=== PATIENT | female | born 1945 | race Caucasian/White ===

== ENCOUNTER → 2020-01-07 16:02 | Outpatient (CLI) | payer MEDICARE, SELFPAY ==
[2020-01-07 17:00] LABS: BUN Creatinine Ratio 14.3 (6-22); Blood Urea Nitrogen 12 mg/dL (7-17); Calcium 9.2 mg/dL (8.4-10.2); Carbon Dioxide 32 mmol/L (22-32); Chloride 104 mmol/L (98-107); Estimated Glomerular Filt Rate > 60.0 mL/min (>60); Glucose 109 mg/dL (80-110); HEMOLYSIS < 15 (0-50); Potassium 3.8 mmol/L (3.4-5.1); Sodium 141 mmol/L (137-145)
[2020-01-07 17:30] LABS: Thyroid Stimulating Hormone 4.95 uIU/mL (0.47-4.68)
== END ==
PROVIDERS: PCP Nurse Practitioner Family; Referring Provider Nurse Practitioner Family; Visit Provider Nurse Practitioner Family
DX: E03.9 Hypothyroidism, unspecified (principal)
CPT/HCPCS: 36415; 80048; 84443

== ENCOUNTER 2020-02-06 11:20 | Emergency (ER) | payer MEDICARE, SELFPAY ==
[2020-02-06 11:25] VITALS: BP 156/70; PULSE 60; RESP 15; TEMP 36.7; O2SAT 97; BMI 26.8
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
--- NOTE | 2020-02-06 12:02 | DI.RAD.S_ITS ---
PROCEDURE: XR CHEST 1V INDICATIONS: chest pain TECHNIQUE: One view of the chest was acquired. COMPARISON: None. FINDINGS: Surgical changes and devices: None. Lungs and pleura: Lungs are clear. No pleural effusions or pneumothorax. Mediastinum: Mediastinal contours appear normal. Heart size is normal. Bones and chest wall: No suspicious bony lesions. Overlying soft tissues appear unremarkable. IMPRESSION: No acute cardiopulmonary process demonstrated radiographically. Dictated by: Rajendra Casillas M.D. on 02/06/2020 at 12:34 Approved by: Rajendra Casillas M.D. on 02/06/2020 at 12:35
[2020-02-06 12:06] LABS: Add Manual Diff / Slide Review NO; Basophils Absolute Auto 0 /uL (0-100); Basophils Percent Auto 0.6 % (0-2); Eosinophils Absolute Auto 200 /uL (0-450); Hematocrit 38.8 % (36-46); Hemoglobin 12.9 g/dL (12.0-16.0); Lymphocytes Absolute Auto 2200 /uL (1100-4500); Lymphocytes Percent Auto 28.7 % (25-40); Mean Corpuscular HGB Conc 33.2 % (30-36); Mean Corpuscular Hemoglobin 31.3 PG (26-34); Mean Corpuscular Volume 94.4 fL (80-100); Monocytes Absolute Auto 600 /uL (0-900); Monocytes Percent Auto 7.2 % (3-14); Neutrophils Absolute Auto 4800 /uL (1500-7000); Neutrophils Percent Auto 61.5 % (50-75); Platelet Count 257 X10^3/uL (150-400); Red Blood Cell Count 4.11 X10^6/uL (4.0-5.2); Red Cell Distribution Width 13.1 % (11.6-14.8); White Blood Cell Count 7.8 X10^3/uL (4.5-11.0)
--- NOTE | 2020-02-06 12:06 | PC.NURSE ---
Pt states she went to her appt with Kayleigh Hancock today for CP/panic attacks. Was sent here for CP substernal into stomach through to her back and radiating down L arm. states she is under and immense amount of stress and has panic attacks often where she cant breathe. AAOx3 clear lungs, NSR 60's 146/63, IV placed and labs sent. Dr Malone at bedside.
[2020-02-06 12:12] LABS: Alanine Aminotransferase 22 IU/L (<35); Albumin 4.3 g/dL (3.5-5.0); Albumin Globulin Ratio 1.4 (1.0-2.8); Alkaline Phosphatase 61 U/L (38-126); Aspartate Aminotransferase 21 IU/L (14-36); BUN Creatinine Ratio 18.5 (6-22); Bilirubin Total 0.5 mg/dL (0.2-1.3); Blood Urea Nitrogen 15 mg/dL (7-17); Calcium 9.2 mg/dL (8.4-10.2); Carbon Dioxide 28 mmol/L (22-32); Chloride 107 mmol/L (98-107); Creatine Kinase 62 U/L (30-135); Estimated Glomerular Filt Rate > 60.0 mL/min (>60); Globulin 3.1 g/dL (1.7-4.1); Glucose 95 mg/dL (80-110); HEMOLYSIS < 15 (0-50); Lipase 254 U/L (23-300); Sodium 141 mmol/L (137-145); Total Protein 7.4 g/dL (6.3-8.2)
[2020-02-06 12:23] LABS: NT-proBNP (BNP-Adult 18+) 208 pg/mL (<125); Troponin I < 0.012 ng/mL (0.01-0.034)
[2020-02-06 13:09] VITALS: PULSE 59; RESP 13; O2SAT 97
[2020-02-06 13:14] VITALS: BP 129/62; PULSE 61; RESP 19; O2SAT 99
== END 2020-02-06 13:26 | disposition home or self-care (01) ==
PROVIDERS: Emergency Provider Emergency Medicine; PCP Nurse Practitioner Family
DX: F41.9 Anxiety disorder, unspecified (principal); R07.89 Other chest pain
CPT/HCPCS: 36415; 71045; 80053; 81003; 82550; 83690; 83880; 84484; 85025; 93005; 99284

== ENCOUNTER → 2020-02-17 13:29 | Outpatient (CLI) | payer MEDICARE, SELFPAY ==
[2020-02-17 16:31] LABS: Thyroid Stimulating Hormone 1.63 uIU/mL (0.47-4.68)
== END ==
PROVIDERS: PCP Nurse Practitioner Family; Referring Provider Nurse Practitioner Family; Visit Provider Nurse Practitioner Family
DX: E03.9 Hypothyroidism, unspecified (principal)
CPT/HCPCS: 36415; 84443

== ENCOUNTER → 2020-07-12 14:56 | Outpatient (CLI) | payer MEDICARE, SELFPAY ==
[2020-07-12 15:51] LABS: Alanine Aminotransferase 22 IU/L (<35); Albumin 4.5 g/dL (3.5-5.0); Albumin Globulin Ratio 1.6 (1.0-2.8); Alkaline Phosphatase 59 U/L (38-126); Aspartate Aminotransferase 28 IU/L (14-36); BUN Creatinine Ratio 17.7 (6-22); Bilirubin Total 0.5 mg/dL (0.2-1.3); Blood Urea Nitrogen 14 mg/dL (7-17); Calcium 9.8 mg/dL (8.4-10.2); Carbon Dioxide 28 mmol/L (22-32); Chloride 102 mmol/L (98-107); Estimated Glomerular Filt Rate > 60.0 mL/min (>60); Globulin 2.9 g/dL (1.7-4.1); Glucose 88 mg/dL (80-110); HEMOLYSIS < 15 (0-50); Potassium 4.3 mmol/L (3.4-5.1); Sodium 137 mmol/L (137-145); Total Protein 7.4 g/dL (6.3-8.2)
[2020-07-12 16:27] LABS: Free T4, Direct Thyroxine 1.02 ng/dL (0.78-2.19)
== END ==
PROVIDERS: PCP Family Medicine; Referring Provider Family Medicine; Visit Provider Family Medicine
DX: E03.9 Hypothyroidism, unspecified (principal)
CPT/HCPCS: 36415; 80053; 84439; 84443

== ENCOUNTER → 2020-10-22 07:40 | Outpatient (CLI) | payer MEDICARE, SELFPAY ==
--- NOTE | 2020-10-22 07:42 | DI.ECHO.S_ITS ---
[facility] +---------+ : : [address] [place] : : : : [id number] : : : : Phone: [phone] Echocardiogram Report + + :Name: DIAZ VERDUGO Study Date: 10/22/2020 Height: 65 in : :[facility] ReadingLocation: Weight: 140 lb : : Gender: Female BSA: 1.7 m2 : :: 1945 Age: 75 yrs BP: 141/81 mmHg: :Reason For Study: Aortic valve regurgitation : :Ordering Physician: : :MARIA ESTHER CAVANAUGH Performed By: Mauricio Ramos : :Referring: MARIA ESTHER CAVANAUGH : + + Interpretation Summary Normal sinus rhythm. Normal LV size and wall thickness; normal wall motion and LV systolic function. EF is 60-65%. Normal chamber sizes. Mild aortic regurgitation. Otherwise no significant valvular abnormalities. No prior study available for comparison. Procedure: A two-dimensional transthoracic echocardiogram with color flow and Doppler was performed. The study quality was technically adequate. There is no prior echocardiogram noted for this patient. The patient was in sinus rhythm with heart rates between 61-65 bpm during the exam. Left Ventricle: The left ventricle is normal in size and wall thickness. Left ventricular systolic function is normal. The ejection fraction is estimated to be 60-65%. There are no focal wall motion abnormalities. Diastolic parameters suggest a pseudonormalization pattern, consistent with probable elevated filling pressures. Right Ventricle: The right ventricle is normal in size and function. Atria: Both atria are normal in size. There is no Doppler evidence for an interatrial shunt. Mitral Valve: The mitral valve is normal in structure and function. There is mild mitral regurgitation. Aortic Valve: The aortic valve is normal in structure and function. There is mild aortic regurgitation. Tricuspid Valve: The tricuspid valve is normal in structure and function. There is moderate tricuspid regurgitation. The right ventricular systolic pressure is estimated to be at least 25 mmHg based on an estimated right atrial pressure of 3 mm Hg. Pulmonic Valve: The pulmonic valve is not well seen, but is grossly normal. There is mild pulmonic regurgitation. Great Vessels: The aortic root is normal size. The dimensions of the ascending aorta are normal. The IVC is of normal diameter and collapses greater than 50% with a sniff. This suggests a low right atrial pressure of 3 mm Hg. Pericardium/ Pleura There is no pericardial effusion. There is no pleural effusion. MMode/2D Measurements & Calculations LVIDd: 4.0 cm LVOT diam: 1.8 cm LVIDs: 2.6 cm Ao root diam: 2.6 cm FS: 34.8 % asc Aorta Diam: 2.7 cm IVSd: 0.61 cm LVPWd: 0.72 cm LV bowers. diameter/BSA (cm/m^2): 2.4 LV sys. diameter/BSA (cm/m^2): 1.5 LA A2 area: 17.8 cm2 RA long axis: 5.3 cm LA A4 area: 14.7 cm2 RA area: 17.5 cm2 LA length (vol): 5.1 cm RA vol: 48.8 ml LA vol: 43.4 ml RA : 28.7 ml/m2 LA vol index: 25.5 ml/m2 TAPSE: 2.6 cm Doppler Measurements & Calculations Ao V2 max: 183.6 cm/sec LVOT Max Zeb: 143.2 cm/sec Ao V2 mean: 133.0 cm/sec LV V1 max P.2 mmHg Ao max P.5 mmHg LV V1 VTI: 35.6 cm Ao mean P.8 mmHg CHOLO(I,D): 2.0 cm2 Ao V2 VTI: 45.3 cm CHOLO(V,D): 2.0 cm2 sev ratio: 0.79 CHOLO indexed to BSA (cm^2/m^2): 1.2 AI P1/2t: 524.5 msec AI dec slope: 276.5 cm/sec2 MV E max zeb: 93.7 cm/sec TR max zeb: 234.3 cm/sec MV A max zeb: 103.8 cm/sec TR max P.0 mmHg MV E/A: 0.90 PA pr(Accel): 5.4 mmHg Med Peak E' Zeb: 6.1 cm/sec E/E' med: 15.3 Lat Peak E' Zeb: 7.1 cm/sec E/E' lat: 13.1 E/e' average: 14.2 MV dec time: 0.30 sec SV(LVOT): 90.1 ml Electronically signed by: Sarah Lux M.D. on Reading Physician:10/23/2020 03:19 AM
== END ==
PROVIDERS: PCP Family Medicine; Referring Provider Family Medicine; Visit Provider Family Medicine
DX: I08.3 Combined rheumatic disorders of mitral, aortic and tricuspid valves (principal)
CPT/HCPCS: 93306

== ENCOUNTER → 2020-10-27 14:18 | Outpatient (CLI) | payer MEDICARE, SELFPAY ==
--- NOTE | 2020-10-27 14:20 | DI.MG.S_ITS ---
BILATERAL DIGITAL SCREENING MAMMOGRAM 3D/2D WITH CAD: 10/27/2020 CLINICAL: Routine screening. Family history of breast cancer. Comparison is made to exams dated: 01/16/2019 mammogram, 10/11/2017 mammogram, and 08/23/2016 mammogram - outside location. There are scattered fibroglandular elements in both breasts. Current study was also evaluated with a Computer Aided Detection (CAD) system. No significant masses, calcifications, or other findings are seen in either breast. There has been no significant interval change. IMPRESSION: NEGATIVE There is no mammographic evidence of malignancy. A 1 year screening mammogram is recommended. This exam was interpreted at Station ID: [id number]. NOTE: For mammograms, a report in lay terms will be sent to the patient. Approximately 15% of breast malignancies will not be visualized mammographically. In the management of a palpable breast mass, a negative mammogram must not discourage biopsy of a clinically suspicious lesion. Electronically Signed By: Kain lugo/annette:10/27/2020 17:38:33 letter sent: Normal Exam ACR BI-RADS Category 1: Negative [id number]
== END ==
PROVIDERS: PCP Family Medicine; Referring Provider Family Medicine; Visit Provider Family Medicine
DX: Z12.31 Encounter for screening mammogram for malignant neoplasm of breast (principal); Z80.3 Family history of malignant neoplasm of breast
CPT/HCPCS: 77063; 77067

== ENCOUNTER → 2021-09-13 07:54 | Outpatient (CLI) | payer MEDICARE, SELFPAY ==
[2021-09-13 08:41] LABS: Add Manual Diff / Slide Review NO; Basophils Absolute Auto 0 /uL (0-100); Basophils Percent Auto 0.7 % (0-2); Eosinophils Absolute Auto 500 /uL (0-450); Eosinophils Percent Auto 10.2 % (2-4); Hemoglobin 12.6 g/dL (12.0-16.0); Lymphocytes Absolute Auto 1700 /uL (1100-4500); Lymphocytes Percent Auto 30.6 % (25-40); Mean Corpuscular HGB Conc 33.2 % (30-36); Mean Corpuscular Hemoglobin 31.4 PG (26-34); Mean Corpuscular Volume 94.6 fL (80-100); Monocytes Absolute Auto 500 /uL (0-900); Monocytes Percent Auto 8.8 % (3-14); Neutrophils Absolute Auto 2700 /uL (1500-7000); Neutrophils Percent Auto 49.7 % (50-75); Platelet Count 262 X10^3/uL (150-400); Red Blood Cell Count 4.02 X10^6/uL (4.0-5.2); Red Cell Distribution Width 12.5 % (11.6-14.8); White Blood Cell Count 5.4 X10^3/uL (4.5-11.0)
[2021-09-13 09:17] LABS: Alanine Aminotransferase 16 IU/L (<35); Albumin 4.1 g/dL (3.5-5.0); Albumin Globulin Ratio 1.4 (1.0-2.8); Alkaline Phosphatase 53 U/L (38-126); Aspartate Aminotransferase 24 IU/L (14-36); BUN Creatinine Ratio 20.2 (6-22); Bilirubin Total 0.4 mg/dL (0.2-1.3); Blood Urea Nitrogen 17 mg/dL (7-17); Calcium 8.9 mg/dL (8.4-10.2); Carbon Dioxide 31 mmol/L (22-32); Chloride 105 mmol/L (98-107); Cholesterol 243 mg/dL (140-199); Estimated Glomerular Filt Rate > 60 mL/min (>60); Glucose 105 mg/dL (80-110); HDL Cholesterol 55 mg/dL (40-60); HEMOLYSIS < 15 (0-50); LDL Cholesterol Calculated 155 mg/dL (<100); Potassium 4.3 mmol/L (3.4-5.1); Sodium 139 mmol/L (137-145); Total Protein 7.1 g/dL (6.3-8.2); Triglycerides 167 mg/dL (35-150)
[2021-09-13 09:31] LABS: Thyroid Stimulating Hormone 3.06 uIU/mL (0.47-4.68)
== END ==
PROVIDERS: PCP Family Medicine; Referring Provider Family Medicine; Visit Provider Family Medicine
DX: E03.9 Hypothyroidism, unspecified (principal); F41.9 Anxiety disorder, unspecified; I10 Essential (primary) hypertension
CPT/HCPCS: 36415; 80053; 80061; 84439; 84443; 85025

== ENCOUNTER → 2021-11-02 13:08 | Outpatient (CLI) | payer MEDICARE, SELFPAY ==
--- NOTE | 2021-11-02 13:09 | DI.MG.S_ITS ---
BILATERAL DIGITAL SCREENING MAMMOGRAM 3D/2D WITH CAD: 11/02/2021 CLINICAL: Routine screening. Family history of breast cancer. Comparison is made to exams dated: 10/27/2020 mammogram - [facility], 01/16/2019 mammogram, and 10/11/2017 mammogram - outside location. There are scattered fibroglandular elements in both breasts. Current study was also evaluated with a Computer Aided Detection (CAD) system. No significant masses, calcifications, or other findings are seen in either breast. There has been no significant interval change. IMPRESSION: NEGATIVE There is no mammographic evidence of malignancy. A 1 year screening mammogram is recommended. Based on the Tyrer Cuzick model (a risk assessment model) the patient's lifetime risk is 2.9% and her 10 year risk is 2.9%. According to the ACR, ACS, and NCCN guidelines, an annual breast MRI exam along with mammogram is recommended if the patient's lifetime risk is 20% or greater. This exam was interpreted at Station ID: [id number]. NOTE: For mammograms, a report in lay terms will be sent to the patient. Approximately 15% of breast malignancies will not be visualized mammographically. In the management of a palpable breast mass, a negative mammogram must not discourage biopsy of a clinically suspicious lesion. Electronically Signed By: Rosalino farley/annette:11/02/2021 13:36:00 letter sent: Normal Exam ACR BI-RADS Category 1: Negative [id number]
== END ==
PROVIDERS: PCP Family Medicine; Referring Provider Family Medicine; Visit Provider Family Medicine
DX: Z12.31 Encounter for screening mammogram for malignant neoplasm of breast (principal); Z80.3 Family history of malignant neoplasm of breast
CPT/HCPCS: 77063; 77067

== ENCOUNTER → 2022-03-09 15:04 | Outpatient (CLI) | payer MEDICARE, SELFPAY ==
--- NOTE | 2022-03-09 15:06 | DI.RAD.S_ITS ---
PROCEDURE: XR KNEE RT 3V INDICATIONS: Evaluate and Treat TECHNIQUE: 3 views of the knee were acquired. COMPARISON: None. FINDINGS: Bones: No fractures or dislocations. No suspicious bony lesions. Mild tricompartmental periarticular osteophyte formation. Soft tissues: Small joint effusion. No suspicious soft tissue calcifications. IMPRESSION: Mild tricompartmental knee joint degeneration and small joint effusion. Dictated by: Joe Solares [facility] Interpreted: Ruperto Allen MD on 03/09/2022 at 16:18 Transcribed by: CARLOS on 03/09/2022 at 16:19 Approved by: Ruperto Allen M.D. on 03/09/2022 at 17:10
== END ==
PROVIDERS: PCP Family Medicine; Referring Provider Family Medicine; Visit Provider Family Medicine
DX: M17.11 Unilateral primary osteoarthritis, right knee (principal); M25.461 Effusion, right knee; M25.561 Pain in right knee
CPT/HCPCS: 73562

== ENCOUNTER → 2022-03-10 08:03 | Outpatient (CLI) | payer MEDICARE, SELFPAY ==
[2022-03-10 10:12] LABS: Alanine Aminotransferase 20 IU/L (<35); Albumin 3.9 g/dL (3.5-5.0); Albumin Globulin Ratio 1.3 (1.0-2.8); Alkaline Phosphatase 57 U/L (38-126); Aspartate Aminotransferase 22 IU/L (14-36); BUN Creatinine Ratio 27.2 (6-22); Bilirubin Total 0.2 mg/dL (0.2-1.3); Blood Urea Nitrogen 22 mg/dL (7-17); Carbon Dioxide 27 mmol/L (22-32); Chloride 104 mmol/L (98-107); Cholesterol 188 mg/dL (140-199); Estimated Glomerular Filt Rate > 60 mL/min (>60); Globulin 2.9 g/dL (1.7-4.1); Glucose 101 mg/dL (80-110); HDL Cholesterol 46 mg/dL (40-60); HEMOLYSIS < 15 (0-50); LDL Cholesterol Calculated 82 mg/dL (<100); Potassium 4.6 mmol/L (3.4-5.1); Sodium 139 mmol/L (137-145); Total Protein 6.8 g/dL (6.3-8.2); Triglycerides 302 mg/dL (35-150)
[2022-03-10 10:28] LABS: Free T4, Direct Thyroxine 1.07 ng/dL (0.78-2.19)
[2022-03-10 10:42] LABS: Thyroid Stimulating Hormone 3.02 uIU/mL (0.47-4.68)
== END ==
PROVIDERS: PCP Family Medicine; Referring Provider Family Medicine; Visit Provider Family Medicine
DX: E03.9 Hypothyroidism, unspecified (principal); E78.2 Mixed hyperlipidemia; F41.9 Anxiety disorder, unspecified
CPT/HCPCS: 36415; 80053; 80061; 84439; 84443

== ENCOUNTER → 2022-07-01 08:18 | Outpatient (CLI) | payer MEDICARE, SELFPAY ==
[2022-07-01 08:58] LABS: Add Manual Diff / Slide Review NO; Basophils Absolute Auto 0 /uL (0-100); Basophils Percent Auto 0.8 % (0-2); Eosinophils Absolute Auto 300 /uL (0-450); Eosinophils Percent Auto 4.2 % (2-4); Hematocrit 38.6 % (36-46); Hemoglobin 12.9 g/dL (12.0-16.0); Lymphocytes Absolute Auto 1900 /uL (1100-4500); Lymphocytes Percent Auto 30.2 % (25-40); Mean Corpuscular HGB Conc 33.4 % (30-36); Mean Corpuscular Hemoglobin 31.5 PG (26-34); Mean Corpuscular Volume 94.2 fL (80-100); Monocytes Absolute Auto 500 /uL (0-900); Monocytes Percent Auto 7.2 % (3-14); Neutrophils Absolute Auto 3600 /uL (1500-7000); Neutrophils Percent Auto 57.6 % (50-75); Platelet Count 260 X10^3/uL (150-400); Red Cell Distribution Width 13.1 % (11.6-14.8); White Blood Cell Count 6.3 X10^3/uL (4.5-11.0)
[2022-07-01 09:40] LABS: Cholesterol 236 mg/dL (140-199); HDL Cholesterol 58 mg/dL (40-60); LDL Cholesterol Calculated 140 mg/dL (<100); Triglycerides 188 mg/dL (35-150)
[2022-07-01 12:21] LABS: TSH w/ Reflex to FT4 2.11 uIU/mL (0.47-4.68)
== END ==
PROVIDERS: PCP Family Medicine; Referring Provider Family Medicine; Visit Provider Family Medicine
DX: E03.9 Hypothyroidism, unspecified (principal); E78.2 Mixed hyperlipidemia; K57.92 Diverticulitis of intestine, part unspecified, without perforation or abscess without bleeding
CPT/HCPCS: 36415; 80061; 84443; 85025

== ENCOUNTER → 2022-07-07 15:09 | Outpatient (CLI) | payer MEDICARE, SELFPAY ==
--- NOTE | 2022-07-07 15:11 | DI.RAD.S_ITS ---
PROCEDURE: XR HIP W PEL IF DONE LT 2V INDICATIONS: L hip pain TECHNIQUE: AP pelvis with lateral view(s) of the left hip(s). COMPARISON: None. FINDINGS: Bones: No acute fractures or dislocations. Pelvic ring appears intact. No suspicious bony lesions. Moderate-severe left hip degenerative changes with joint space narrowing, spurring, subchondral sclerosis and probable cystic change. Mild right hip degenerative changes also present. Soft tissues: The visualized bowel gas pattern is normal. No suspicious soft tissue calcifications. IMPRESSION: No acute fracture or dislocation identified. Moderate-severe left hip degenerative changes present. If symptoms persist, follow-up radiographs and/or CT or MRI may be helpful for further evaluation. Dictated by: Dimitris Huddleston M.D. on 07/07/2022 at 16:16 Approved by: Dimitris Huddleston M.D. on 07/07/2022 at 16:18
== END ==
PROVIDERS: PCP Family Medicine; Referring Provider Family Medicine; Visit Provider Family Medicine
DX: M25.552 Pain in left hip (principal)
CPT/HCPCS: 73502

== ENCOUNTER 2022-07-21 06:49 | Day surgery (SDC) | payer MEDICARE, SELFPAY ==
[2022-07-21 07:30] VITALS: BMI 26.6
[2022-07-21 07:42] VITALS: BP 147/73; PULSE 65; RESP 16; TEMP 36.2
--- NOTE | 2022-07-21 07:43 | PM.HP.1 ---
History of Present Illness History of Present Illness Date Patient Seen: 07/21/22 Time Patient Seen: 07:35 Chief complaint: Colonoscopy Narrative: Ms. Gonzalez presents today for a screening colonoscopy. She is having severe pain in her right hip but that has been going on for some time she is not sure the etiology at this time. The prep has gone well. Her last colonoscopy was maybe about 10 years ago she can not recall. She does not recall any history of polyps although she was told she does have diverticula. She has no family history of colon cancer and no bleeding or bowel symptoms that are concerning. [facility] Medical History Acquired hypothyroidism (~1963) Allergies (~1963) Anxiety (~2006) Aortic valve regurgitation Bilateral hearing loss Bilateral tinnitus Cataracts, bilateral (~1993) Chicken pox (~1951) Depression Diverticular disease (~1994) Diverticulitis Herpes (~1989) Hyperlipidemia Hypertension Intermittent palpitations (2014) Large breasts Left hip pain Left shoulder pain Measles (~1952) Mitral valve regurgitation Mumps (~1950) Preventative health care Preventative health care Pulmonic valve regurgitation Right knee pain Seborrheic keratosis Tinnitus (~1989) Tricuspid valve regurgitation Varicose veins of bilateral lower extremities with other complications Well adult exam Surgical History Anesthesia History of cholecystectomy (~1976) History of tonsillectomy (~1951) Family History Father History of heart disease Mother History of heart disease Sister Dementia Grandmother Dementia Grandfather History of heart disease Grandmother Ulcer Social History household members: family Smoking Status: Never smoker Meds Home Medications and Allergies Home Medications Medication Instructions Recorded Confirmed Type Saccharomyces boulardii [Daily PO 07/07/22 07/07/22 History Probiotic (S. boulardii)] citalopram 20 mg tablet See Rx Instructions .Route 07/07/22 07/21/22 Rx .COMPLEX #90 tabs famciclovir 250 mg tablet 250 mg PO BID As needed use 07/07/22 07/21/22 Rx outbreaks #30 tabs levothyroxine 88 mcg tablet 88 mcg PO DAILY #90 tabs 07/07/22 07/21/22 Rx lorazepam 1 mg tablet 1 mg PO BID PRN anxiety #30 tabs 07/07/22 07/21/22 Rx multivitamin [Daily Multi-Vitamin] PO 07/07/22 07/07/22 History [id number]-capryl PO 07/07/22 07/07/22 History Allergies Allergy/AdvReac Type Severity Reaction Status Date / Time Sulfa (Sulfonamide Allergy Verified 07/21/22 07:24 Antibiotics) amitriptyline AdvReac Intermediate hearing Verified 07/21/22 07:24 loss Exam Const General: cooperative, healthy appearing and No comfortable Other: Hip pain Eyes General: appearance normal, both eyes and all related structures Resp Effort & Inspection: normal respiratory effort and able to speak in complete sentences GI Palpation: soft and No tender Assessment & Plan Assessment and plan (1) Colon cancer screening: Status: Acute (2) Diverticular disease: Status: Chronic Assessment & Plan narrative: I discussed the risks benefits and alternatives including but not limited to perforation of the colon and an incomplete exam she fully understands these risks and would like to proceed.
[2022-07-21] MEDS: LACTATED RINGERS 1,000 ML 42 ML IV (07:50)
[2022-07-21 08:39] VITALS: BP 113/68; PULSE 62; RESP 12; TEMP 36.2; O2SAT 97
[2022-07-21 08:43] VITALS: BP 99/70; PULSE 70; RESP 17; O2SAT 98
[2022-07-21 09:15] VITALS: BP 134/74; PULSE 61; RESP 12; TEMP 36.5; O2SAT 99
--- NOTE | 2022-07-21 10:08 | SUR.PHASEII ---
Patient reported dizziness which improved with rest and hydration. Delayed D/C due to waiting for ride.
--- NOTE | 2022-07-21 19:43 | P.OP.COLON_ITS ---
Operative Date/Time/Diagnoses Date of procedure: 07/21/22 Pre-op diagnosis: Colon cancer screening, average risk Post-op diagnosis: same Procedure & Clinicians Study performed: Colonoscopy Same procedure as scheduled: Yes Surgeon: Justina Andarde Procedure Notes Procedure in detail: Patient was taken to the endoscopy suite and placed in left lateral decubitus position. A time-out was performed. Conscious sedation was performed and monitored by anesthesiologist. Digital rectal exam was performed no masses or strictures were present. The colonoscope was introduced into the anal canal and advanced through to the cecum. The sigmoid colon was noted to be very tortuous and have multiple large diverticula. Several photographs were obtained. In addition the prep was relatively poor and a [place] bowel prep score of 1. The cecum was reached and a photograph was obtained and the scope was then withdrawn for 22 minutes. Throughout the withdrawal irrigation and suction was used to clean the colonic mucosa as much as possible. I think that the exam was adequate though limited by the prep. No polyps were seen. Findings: divertiulosis Post-procedure Recommendations: Colonoscopy in 5 years Plan for aftercare: I think that a 5 year follow-up would be preferred due to the quality of the prep.
== END 2022-07-21 09:44 | disposition home or self-care (01) ==
PROVIDERS: PCP Family Medicine; Referring Provider Surgery; Visit Provider Surgery
PROC: 0DJD8ZZ Inspection of Lower Intestinal Tract, Via Natural or Artificial Opening Endoscopic (ICD-10-PCS; CPT 45378; principal; 2022-07-21 07:45)
DX: Z12.11 Encounter for screening for malignant neoplasm of colon (principal); K57.30 Diverticulosis of large intestine without perforation or abscess without bleeding
CPT/HCPCS: G0121; J2704

== ENCOUNTER 2022-12-12 15:54 | Emergency (ER) | payer MEDICARE, SELFPAY ==
[2022-12-12 16:12] VITALS: BP 146/69; PULSE 67; RESP 16; TEMP 36.2; O2SAT 98; BMI 26.6
--- NOTE | 2022-12-12 16:21 | DI.RAD.S_ITS ---
PROCEDURE: XR FOOT RT MIN 3V INDICATIONS: fall hiking on sunday TECHNIQUE: 3 views of the foot were acquired. COMPARISON: None. FINDINGS: Bones: No fractures or dislocations. No suspicious bony lesions. Soft tissues: No tibiotalar joint effusion. Achilles tendon appears normal. IMPRESSION: No visualized acute fracture or dislocation. However, if clinical concern and/or pain persist, short interval imaging followup in 7-10 days is recommended, as occult injury cannot be definitively excluded. Dictated by: Mary Ralph M.D. on 12/12/2022 at 17:01 Approved by: Mary Ralph M.D. on 12/12/2022 at 17:01
--- NOTE | 2022-12-12 16:21 | DI.RAD.S_ITS ---
PROCEDURE: XR ANKLE LT MIN 3V INDICATIONS: fall hiking on sunday TECHNIQUE: 3 views of the ankle were acquired. COMPARISON: None. FINDINGS: Bones: No fractures or dislocations. Ankle mortise is normally aligned. No suspicious bony lesions. Soft tissues: No tibiotalar joint effusion. Achilles tendon appears normal. IMPRESSION: No visualized acute fracture or dislocation. However, if clinical concern and/or pain persist, short interval imaging followup in 7-10 days is recommended, as occult injury cannot be definitively excluded. Dictated by: Mary Ralph M.D. on 12/12/2022 at 17:02 Approved by: Mary Ralph M.D. on 12/12/2022 at 17:03
--- NOTE | 2022-12-12 16:21 | DI.RAD.S_ITS ---
PROCEDURE: XR HIP W PEL IF DONE LT 2V INDICATIONS: fall hiking on sunday TECHNIQUE: AP pelvis with lateral view(s) of the left hip(s). COMPARISON: [facility], , XR HIP W PEL IF DONE LT 2V, 07/07/2022, 15:17. FINDINGS: Bones: No fractures or dislocations. Pelvic ring appears intact. No suspicious bony lesions. Moderate to severe bilateral degenerative narrowing of the hips, left greater than right. Subchondral sclerosis and periarticular osteophytes are present most notable on the left. Overall appearances are stable. Soft tissues: The visualized bowel gas pattern is normal. No suspicious soft tissue calcifications. IMPRESSION: No visualized acute fracture or dislocation. However, if clinical concern and/or pain persist, short interval imaging followup in 7-10 days is recommended, as occult injury cannot be definitively excluded. Dictated by: Mary Ralph M.D. on 12/12/2022 at 17:02 Approved by: Mary Ralph M.D. on 12/12/2022 at 17:02
--- NOTE | 2022-12-12 19:20 | ED.FALL ---
HPI - Fall General Chief Complaint: Fall Stated Complaint: Fall t-3 Time Seen by Provider: 12/12/22 19:13 Source: patient Mode of arrival: Wheelchair Limitations: no limitations History of Present Illness HPI Narrative: Patient is a 77-year-old female is here for evaluation right foot pain, left ankle pain and left hip pain. Her symptoms occurred approximately 3 days ago when she fell while hiking. She has had chronic left hip pain and she thinks that the fall may have aggravated this. She still has been ambulatory but has to use a walking stick for support. She did not hit her head. No loss of consciousness. She states she is bruising around her foot and uses compression stockings to try to support her ankle and foot. Related Data Home Medications Medication Instructions Recorded Confirmed multivitamin [Daily Multi-Vitamin] PO 07/07/22 11/10/22 ashwagandha extract 1 cap PO DAILY 11/10/22 11/10/22 biotin 1,250 mcg-collagen 50 1 tab PO DAILY 11/10/22 11/10/22 mg-vit C 67.5 mg-vit E-herbal chew tablet citalopram 20 mg tablet 20 mg PO DAILY 11/10/22 11/10/22 lorazepam 1 mg tablet 1 mg PO BEDTIME PRN anxiety 11/10/22 11/10/22 Previous Rx's Medication Instructions Recorded famciclovir 250 mg tablet 250 mg PO BID As needed use 07/07/22 outbreaks #30 tabs levothyroxine 88 mcg tablet 88 mcg PO DAILY #90 tabs 07/07/22 meloxicam 15 mg tablet 15 mg PO DAILY #30 tabs 09/20/22 Allergies Allergy/AdvReac Type Severity Reaction Status Date / Time Sulfa (Sulfonamide Allergy Verified 12/12/22 16:20 Antibiotics) amitriptyline AdvReac Intermediate hearing Verified 12/12/22 16:20 loss lovastatin AdvReac Intermediate aches Verified 12/12/22 16:20 pravastatin AdvReac Intermediate aches Verified 12/12/22 16:20 Statins AdvReac Mild pain Uncoded 12/12/22 16:20 Review of Systems Constitutional Constitutional: Reports system reviewed and no additional complaints, except as documented Musculoskeletal Musculoskeletal: Reports system reviewed and no additional complaints, except as documented Integumentary/Breasts Skin/Breast: Reports system reviewed and no additional complaints, except as documented Neurologic Neurologic: Reports system reviewed and no additional complaints, except as documented Hematologic/Lymphatic On Anticoagulants: No Patient History Medical History Acquired hypothyroidism (~1963) Allergies (~1963) Aortic valve regurgitation Bilateral hearing loss Bilateral tinnitus Cataracts, bilateral (~1993) Chicken pox (~1951) Depression, major, recurrent Diverticular disease (~1994) Diverticulitis Generalized anxiety disorder Herpesviral infection Hypertension Intermittent palpitations (2014) Large breasts Measles (~1952) Mitral valve regurgitation Mixed hyperlipidemia Mumps (~1950) Primary osteoarthritis involving multiple joints Seborrheic keratosis Statin intolerance Tinnitus (~1989) Varicose veins of bilateral lower extremities with other complications Surgical History Anesthesia History of cholecystectomy (~1976) History of tonsillectomy (~1951) Family History Father History of heart disease Mother History of heart disease Sister Dementia Grandmother Dementia Grandfather History of heart disease Grandmother Ulcer Social History details: Lives with daughter, 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 household members: family Smoking Status: Never smoker Smoking Status: Never smoker alcohol intake frequency: holidays/special occasions only Substance Use Type: does not use Exam Initial Vital Signs Initial Vital Signs: Vital Signs Temperature 97.1 F L 12/12/22 16:12 Pulse Rate 67 12/12/22 16:12 Respiratory Rate 16 12/12/22 16:12 Blood Pressure 146/69 H 12/12/22 16:12 Pulse Oximetry 98 12/12/22 16:12 Oxygen Delivery Method Room Air 12/12/22 16:12 Const General: cooperative, comfortable and No ill appearing HENMT Head: normal to inspection and normocephalic Neuro Sensory Exam: no sensory deficits noted Extrem Other: Mild swelling to the right ankle. She is tenderness over the dorsum of the foot on the right. No Lisfranc joint tenderness. No ankle tenderness. She does have tenderness around her left ankle. Tenderness to the lateral left hip. Course Orders Ordered: ED Orders 12/12/22 16:21 XR ankle LT min 3V Stat XR foot RT min 3V Stat XR hip w pel if done LT 2V Stat Vital Signs Vital signs: Vital Signs - 8 hr 12/12/22 19:31 Pulse Rate 59 L Respiratory Rate 17 Blood Pressure 171/77 H Pulse Oximetry 100 Oxygen Delivery Method Room Air MDM - Fall Imaging Data Extremity x-ray #1: Radiologist's Impression: PROCEDURE:? XR ANKLE LT MIN 3V ? INDICATIONS:? fall hiking on sunday ? TECHNIQUE:? 3 views of the ankle were acquired.? ? COMPARISON:? None. ? FINDINGS:? ? Bones:? No fractures or dislocations.? Ankle mortise is normally aligned.? No suspicious bony lesions.? ? Soft tissues:? No tibiotalar joint effusion.? Achilles tendon appears normal.? ? ? IMPRESSION:? No visualized acute fracture or dislocation. However, if clinical concern and/or pain persist, short interval imaging followup in 7-10 days is recommended, as occult injury cannot be definitively excluded. Extremity x-ray #2: Radiologist's Impression: PROCEDURE:? XR FOOT RT MIN 3V ? INDICATIONS:? fall hiking on sunday ? TECHNIQUE:? 3 views of the foot were acquired.? ? COMPARISON:? None. ? FINDINGS:? ? Bones:? No fractures or dislocations.? No suspicious bony lesions.? ? Soft tissues:? No tibiotalar joint effusion.? Achilles tendon appears normal.? ? ? IMPRESSION:? No visualized acute fracture or dislocation. However, if clinical concern and/or pain persist, short interval imaging followup in 7-10 days is recommended, as occult injury cannot be definitively excluded. Extremity x-ray #3: Radiologist's Impression: PROCEDURE:? XR HIP W PEL IF DONE LT 2V ? INDICATIONS:? fall hiking on sunday ? TECHNIQUE:? AP pelvis with lateral view(s) of the left hip(s).? ? COMPARISON:? [facility], [place], XR HIP W PEL IF DONE LT 2V, 07/07/2022, 15:17. ? FINDINGS:? ? Bones:? No fractures or dislocations.? Pelvic ring appears intact.? No suspicious bony lesions.? Moderate to severe bilateral degenerative narrowing of the hips, left greater than right.? Subchondral sclerosis and periarticular osteophytes are present most notable on the left.? Overall appearances are stable. ? Soft tissues:? The visualized bowel gas pattern is normal.? No suspicious soft tissue calcifications.? ? ? IMPRESSION:? No visualized acute fracture or dislocation. However, if clinical concern and/or pain persist, short interval imaging followup in 7-10 days is recommended, as occult injury cannot be definitively excluded. ? MDM Narrative Medical decision making narrative: X-ray show no acute pathology. This was a mechanical fall I did discuss this with the patient. She is able to bear weight on her lower extremities. There is no indication for further radiologic studies. We did discuss conservative measures to include heat and ice and compression. Discharge patient home with return precautions. She expressed understanding and agreement Discharge Plan Departure Patient Disposition: Home Clinical Impression: Hip pain, left, Sprain of foot, right Instructions: How To Perform RICE (Rest, Ice, Compress, Elevate) Activity Restrictions/Additional Instructions: Your x-rays today did not show any signs of fractures or dislocations. You can walk as tolerated. I recommend Tylenol/ibuprofen for any discomfort. Return to the emergency department for worsening symptoms. Prescriptions: No Action citalopram 20 mg tablet 20 mg PO DAILY lorazepam 1 mg tablet 1 mg PO BEDTIME PRN (Reason: anxiety) [id number] C-E-herbal 1,250 mcg-50 mg -67.5 mg-15 mg tablet,chewable 1 tab PO DAILY ashwagandha extract 1 cap PO DAILY multivitamin [Daily Multi-Vitamin] PO famciclovir 250 mg tablet 250 mg PO BID Qty: 30 2RF levothyroxine 88 mcg tablet 88 mcg PO DAILY Qty: 90 3RF meloxicam 15 mg tablet 15 mg PO DAILY Qty: 30 1RF Referrals: Magnus Prince MD [Primary Care Provider] - Stand Alone Forms: Patient Portal/API
[2022-12-12 19:31] VITALS: BP 171/77; PULSE 59; RESP 17; O2SAT 100
== END 2022-12-12 19:32 | disposition home or self-care (01) ==
PROVIDERS: Emergency Provider Emergency Medicine; PCP Internal Medicine
DX: S93.601A Unspecified sprain of right foot, initial encounter (principal); M25.552 Pain in left hip; W18.30XA Fall on same level, unspecified, initial encounter
CPT/HCPCS: 73502; 73610; 73630; 99281; 99283

== ENCOUNTER → 2022-12-20 09:56 | Outpatient (CLI) | payer MEDICARE, SELFPAY ==
--- NOTE | 2022-12-20 09:57 | DI.MG.S_ITS ---
BILATERAL DIGITAL SCREENING MAMMOGRAM 3D/2D WITH CAD: 12/20/2022 CLINICAL: Routine screening. Family history of breast cancer. Comparison is made to exams dated: 11/02/2021 mammogram, 10/27/2020 mammogram - [facility], 01/16/2019 mammogram, and 10/11/2017 mammogram - outside location. There are scattered areas of fibroglandular density in both breasts (category b / 25%-50% glandular tissue). Current study was also evaluated with a Computer Aided Detection (CAD) system. No significant masses, calcifications, or other findings are seen in either breast. There has been no significant interval change. IMPRESSION: NEGATIVE There is no mammographic evidence of malignancy. A 1 year screening mammogram is recommended. Based on the Tyrer Cuzick model (a risk assessment model) the patient's lifetime risk is 2.7% and her 10 year risk is 0.0%. According to the ACR, ACS, and NCCN guidelines, an annual breast MRI exam along with mammogram is recommended if the patient's lifetime risk is 20% or greater. This exam was interpreted at Station ID: [id number]. NOTE: For mammograms, a report in lay terms will be sent to the patient. Approximately 15% of breast malignancies will not be visualized mammographically. In the management of a palpable breast mass, a negative mammogram must not discourage biopsy of a clinically suspicious lesion. Electronically Signed By: Ernesto roca/annette:12/20/2022 18:00:08 letter sent: Normal Exam ACR BI-RADS Category 1: Negative 3341F
--- NOTE | 2022-12-20 09:57 | DI.RAD.S_ITS ---
PROCEDURE: XR FOOT RT MIN 3V INDICATIONS: right foot pain TECHNIQUE: 3 views of the foot were acquired. COMPARISON: [facility], , XR FOOT RT MIN 3V, 12/12/2022, 16:40. FINDINGS: Bones: No fractures or dislocations. Left foot osteoarthritic changes are seen with joint space narrowing and subchondral sclerosis. Tiny plantar calcaneal enthesophyte is noted. No suspicious bony lesions. Soft tissues: No tibiotalar joint effusion. Achilles tendon appears normal. IMPRESSION: Fatg-op-scxsxagr left foot osteoarthritis. No fracture or dislocation. No signs of healing fractures. Dictated by: Ruperto Allen M.D. on 12/20/2022 at 10:32 Approved by: Ruperto Allen M.D. on 12/20/2022 at 10:34
== END ==
PROVIDERS: PCP Internal Medicine; Referring Provider Internal Medicine; Visit Provider Internal Medicine
DX: Z12.31 Encounter for screening mammogram for malignant neoplasm of breast (principal); Z80.3 Family history of malignant neoplasm of breast; M19.071 Primary osteoarthritis, right ankle and foot; M79.671 Pain in right foot
CPT/HCPCS: 73630; 77063; 77067

== ENCOUNTER → 2023-03-09 08:02 | Outpatient (CLI) | payer MEDICARE, SELFPAY ==
--- NOTE | 2023-03-09 08:03 | DI.ECHO.S_ITS ---
[facility]---------+ [facility] +---------+ : : [address] [place] : : : : [id number] : : : : Phone: [phone]+ Echocardiogram Report + + :Name: DIAZ VERDUGO Study Date: 03/09/2023 Height: 65 in : :[facility] ReadingLocation: Weight: 165 lb : : Gender: Female BSA: 1.8 m2 : :: 1945 Age: 77 yrs BP: 137/76 mmHg: :Reason For Study: Aotic Valve Insufficiency : :Ordering Physician: GIOVANA, : :NAE Performed By: Enma Simpson : :Referring: NAE AKHTAR : + + Interpretation Summary The ejection fraction is estimated to be 60-65%. The right ventricle is normal in size and function. The right ventricular systolic pressure is estimated to be at least 21 mmHg based on an estimated right atrial pressure of 3 mm Hg. There is mild aortic regurgitation. No significant change from prior study in 10/2020 Procedure: A two-dimensional transthoracic echocardiogram with color flow and Doppler was performed. The study quality was technically adequate. Comparison is made with the echocardiogram of 10/22/2020. The patient was in normal sinus rhythm during the exam. Left Ventricle: The left ventricle is normal in size. The ejection fraction is estimated to be 60-65%. Diastolic parameters suggest a relaxation abnormality of the left ventricle, consistent with probable normal filling pressures. Right Ventricle: The right ventricle is normal in size and function. Atria: The left atrial size is normal. Right atrial size is normal. There is no Doppler evidence for an interatrial shunt. Mitral Valve: The mitral valve is normal. There is mild mitral annular calcification. There is no mitral valve stenosis. There is trace mitral regurgitation. Aortic Valve: The aortic valve is trileaflet. The aortic valve opens well. There is no aortic valve stenosis. There is mild aortic regurgitation. Tricuspid Valve: The tricuspid valve is normal. There is no tricuspid stenosis. There is mild tricuspid regurgitation. The right ventricular systolic pressure is estimated to be at least 21 mmHg based on an estimated right atrial pressure of 3 mm Hg. Pulmonic Valve: The pulmonic valve leaflets are thin and pliable; valve motion is normal. There is no pulmonic valvular stenosis. There is trace pulmonic regurgitation. Great Vessels: The aortic root is normal size. The ascending aorta is normal in size. The pulmonary artery is normal size. The IVC is of normal diameter and collapses greater than 50% with a sniff. This suggests a low right atrial pressure of 3 mm Hg. Pericardium/ Pleura There is no pericardial effusion. There is no pleural effusion. MMode/2D Measurements & Calculations LVIDd: 4.0 cm LVOT diam: 1.6 cm LVIDs: 1.7 cm Ao root diam: 2.8 cm FS: 58.0 % asc Aorta Diam: 2.8 cm IVSd: 0.73 cm LVPWd: 0.74 cm LV bowers. diameter/BSA (cm/m^2): 2.2 LV sys. diameter/BSA (cm/m^2): 0.91 LA A2 area: 16.3 cm2 RA long axis: 5.6 cm LA A4 area: 9.7 cm2 RA area: 16.8 cm2 LA length (vol): 4.8 cm RA vol: 43.0 ml LA vol: 28.2 ml RA : 23.6 ml/m2 LA vol index: 15.5 ml/m2 TAPSE: 2.4 cm Doppler Measurements & Calculations Ao V2 max: 199.4 cm/sec LVOT Max Zeb: 121.1 cm/sec Ao V2 mean: 135.6 cm/sec LV V1 max P.9 mmHg Ao max P.9 mmHg LV V1 VTI: 28.0 cm Ao mean P.4 mmHg CHOLO(I,D): 1.3 cm2 Ao V2 VTI: 46.2 cm CHOLO(V,D): 1.3 cm2 sev ratio: 0.61 CHOLO indexed to BSA (cm^2/m^2): 0.69 MV E max zeb: 75.5 cm/sec TR max zeb: 214.6 cm/sec MV A max zeb: 99.5 cm/sec TR max P.4 mmHg MV E/A: 0.76 PA V2 max: 81.6 cm/sec Med Peak E' Zeb: 5.0 cm/sec PA V2 mean: 60.2 cm/sec E/E' med: 15.2 PA mean P.6 mmHg Lat Peak E' Zeb: 6.7 cm/sec PA pr(Accel): 22.5 mmHg E/E' lat: 11.3 E/e' average: 13.3 MV dec time: 0.29 sec [facility]): 57.9 ml Reading Physician:MARVIN
== END ==
PROVIDERS: PCP Internal Medicine; Referring Provider Internal Medicine; Visit Provider Internal Medicine
DX: I08.3 Combined rheumatic disorders of mitral, aortic and tricuspid valves (principal)
CPT/HCPCS: 93306

== ENCOUNTER → 2023-05-25 10:54 | Outpatient (CLI) | payer MEDICARE, SELFPAY ==
--- NOTE | 2023-05-25 11:04 | DI.RAD.S_ITS ---
Bone Density Report Name: DIAZ VERDUGO Age: 78 Sex: Female Ethnicity: White Date of : 1945 Indication: postmenopausal; screening for osteoporosis; prior fracture; Referring Provider: NILS AVILEZ Study: Bone densitometry was performed. Exam Date: May 25, 2023 Accession number: [id number] Bone Density: Region BMD T-score Z-score Classification AP Spine(L1, L2, L3) 0.935 -0.8 1.7 Normal Femoral Neck (Left) 0.689 -1.4 0.7 Osteopenia Total Hip (Left) 0.791 -1.2 0.7 Osteopenia Femoral Neck (Right) 0.660 -1.7 0.5 Osteopenia Total Hip (Right) 0.804 -1.1 0.8 Osteopenia Total Hip Mean 0.797 -1.2 0.8 Osteopenia World Health Organization criteria for BMD impression classify patients as: Normal (T-score at or above -1.0), Osteopenia (T-score between -1.0 and -2.5), or Osteoporosis (T-score at or below -2.5). 10-year Fracture Risk(1): Major Osteoporotic Fracture 19% Hip Fracture 4.0% Reported Risk Factors: [place] (), Neck BMD=0.660, BMI=26.6, previous fracture (1) FRAX(R) Version 3.08. Fracture probability calculated for an untreated patient. Fracture probability may be lower if the patient has received treatment. Impression: The patient has low bone mass, based on the Right Femoral Neck T-score. The patient has an estimated ten-year risk of hip fracture of 4% and an estimated ten-year risk of major fracture of 19%, based on the WHO FRAX algorithm. The patient has risk factors, including: previous fracture. Discussion: BONE DENSITY IS LOW AT ONE OR MORE SKELETAL SITES. THE PATIENT'S BMD AND CLINICAL RISK FACTORS CONTRIBUTE TO THIS PATIENT'S INCREASED RISK OF FRACTURE. This patient's lowest T-score is low at one or more skeletal sites. It meets the World Health Organization's (WHO) criteria for low bone mass (T-score between -1.0 and -2.5). The patient's 10-year risk of hip fracture as calculated by FRAX exceeds the threshold where pharmacological therapy is recommended by the National Osteoporosis Foundation (NOF). However, all treatment decisions require clinical judgment and consideration of individual patient factors, including patient preferences, comorbidities, previous drug use, risk factors not captured in the FRAX model (e.g., frailty, falls, vitamin D deficiency, increased bone turnover, interval significant decline in bone density) and possible under or overestimation of fracture risk by FRAX. The patient should follow a healthful lifestyle (good nutrition with adequate calcium and vitamin D, and appropriate weight-bearing exercise). Follow-Up: Consider a repeat BMD and Vertebral Fracture Assessment (VFA) exam in 2 years or sooner if medically necessary, to reassess this patient's status. Reported by: JEOVANY CHAUHAN M.D. on 05/25/2023 11:59:00 AM.
== END ==
PROVIDERS: PCP Internal Medicine; Referring Provider Orthopaedic Surgery Adult Reconstructive Orthopaedic Surgery; Visit Provider Orthopaedic Surgery Adult Reconstructive Orthopaedic Surgery
DX: M85.851 Other specified disorders of bone density and structure, right thigh; Z78.0 Asymptomatic menopausal state
CPT/HCPCS: 77080

== ENCOUNTER → 2023-06-06 15:43 | Outpatient (CLI) | payer MEDICARE, SELFPAY ==
[2023-06-06 16:57] LABS: Hematocrit 36.7 % (36-46); Hemoglobin 12.5 g/dL (12.0-16.0); Mean Corpuscular HGB Conc 34.2 % (30-36); Mean Corpuscular Hemoglobin 32.1 PG (26-34); Mean Corpuscular Volume 93.8 fL (80-100); Platelet Count 255 X10^3/uL (150-400); Red Blood Cell Count 3.91 X10^6/uL (4.0-5.2); Red Cell Distribution Width 12.8 % (11.6-14.8); White Blood Cell Count 6.6 X10^3/uL (4.5-11.0)
[2023-06-06 17:26] LABS: Alanine Aminotransferase 17 IU/L (<35); Albumin 4.3 g/dL (3.5-5.0); Albumin Globulin Ratio 1.4 (1.0-2.8); Alkaline Phosphatase 54 U/L (38-126); Aspartate Aminotransferase 22 IU/L (14-36); BUN Creatinine Ratio 24.4 (6-22); Bilirubin Total 0.5 mg/dL (0.2-1.3); Blood Urea Nitrogen 19 mg/dL (7-17); Calcium 9.3 mg/dL (8.4-10.2); Carbon Dioxide 29 mmol/L (22-32); Chloride 102 mmol/L (98-107); Cholesterol 253 mg/dL (140-199); Estimated Glomerular Filt Rate > 60 mL/min (>60); Globulin 3.1 g/dL (1.7-4.1); Glucose 100 mg/dL (80-110); HDL Cholesterol 51 mg/dL (40-60); HEMOLYSIS < 15 (0-50); LDL Cholesterol Calculated 139 mg/dL (<100); Potassium 3.9 mmol/L (3.4-5.1); Sodium 139 mmol/L (137-145); Total Protein 7.4 g/dL (6.3-8.2); Triglycerides 317 mg/dL (35-150)
== END ==
PROVIDERS: PCP Internal Medicine; Referring Provider Internal Medicine; Visit Provider Internal Medicine
DX: E03.9 Hypothyroidism, unspecified (principal); E78.2 Mixed hyperlipidemia; I35.1 Nonrheumatic aortic (valve) insufficiency
CPT/HCPCS: 36415; 80053; 80061; 84443; 85027

== ENCOUNTER 2023-07-06 08:52 | Day surgery (SDC) | payer MEDICARE, SELFPAY ==
[2023-07-02 12:48] VITALS: BMI 27.3
--- NOTE | 2023-07-06 | DI.RAD.S_ITS ---
PROCEDURE: XR HIP W PEL IF DONE LT 2V INDICATIONS: LT HIP ANTERIOR TECHNIQUE: 2 views of the hip were acquired. COMPARISON: [facility], [place], XR HIP W PEL IF DONE LT 2V, 07/06/2023, 12:43. [facility], [place], XR HIP W PEL IF DONE LT 2V, 12/12/2022, 16:40. FINDINGS: Bones: [id number] partially seen right hip arthrosis. Left hip arthroplasty is present. Soft tissues: Postoperative changes. IMPRESSION: Postoperative changes following left hip arthroplasty. Xnmi-qk-[id number] right hip arthrosis is partially seen Dictated by: Armaan Hampton M.D. on 07/06/2023 at 15:43 Approved by: Armaan Hampton M.D. on 07/06/2023 at 15:43
--- NOTE | 2023-07-06 06:00 | DI.RAD.S_ITS ---
PROCEDURE: XR HIP W PEL IF DONE LT 2V INDICATIONS: CONTRERAS TECHNIQUE: Left views of the hip were acquired. COMPARISON: [facility], [place], XR HIP W PEL IF DONE LT 2V, 07/06/2023, 13:47. [facility], [place], XR HIP W PEL IF DONE LT 2V, 12/12/2022, 16:40. FINDINGS: Left hip arthroplasty projects in the expected location. IMPRESSION: Intraoperative guidance provided. Dictated by: Ernesto Hartman M.D. on 07/06/2023 at 14:55 Approved by: Ernesto Hartman M.D. on 07/06/2023 at 14:57
[2023-07-06 09:30] VITALS: BMI 27.3
[2023-07-06] MEDS: ACETAMINOPHEN 325 MG TABLET 975 MG PO (09:34)
[2023-07-06] MEDS: LACTATED RINGERS 1,000 ML 42 ML IV ×2 (09:36→13:04)
[2023-07-06] MEDS: MELOXICAM 7.5 MG TABLET PO (09:36)
[2023-07-06] MEDS: VANCOMYCIN 1,000 MG/200 ML PIGGYBACK 200 MG IV (09:37)
[2023-07-06 09:57] VITALS: BP 144/59; PULSE 65; RESP 16; TEMP 36.7; O2SAT 96
--- NOTE | 2023-07-06 10:21 | PM.PREOP ---
Pre-operative Note Interval Note History & Physical reviewed/Exam performed by Physician: Yes Changes to H&P: No
[2023-07-06] MEDS: CEFAZOLIN 2 GM/100 ML PREMIX 100 ML IV (11:45)
[2023-07-06] MEDS: TRANEXAMIC ACID 1,000 MG VIAL 1000 MG INJ ×2 (12:00→13:17)
--- NOTE | 2023-07-06 12:31 | SUR.OPER ---
Supine on padded [place] table with bilateral legs secured in padded positioning boots and suspended in positioning spars, operative leg in traction per surgeon. Head on one pillow. Arms secured on padded armboard <90 degrees abduction. Padded perineal post in place per surgeon.
[2023-07-06] MEDS: ROPIVACAINE/EPI/CLONIDINE/KET 50 ML SYRINGE INJ (12:36)
--- NOTE | 2023-07-06 13:39 | PM.OP.1 ---
Operative Date/Time/Diagnoses Date of procedure: 07/06/23 Pre-op diagnosis: Left hip osteoarthritis Post-op diagnosis: same Procedure & Clinicians Procedure: Left total hip arthroplasty (05139) Same procedure as scheduled: Yes Surgeon: Rohan Leon Agricultural Researcher: Radha Ralph Anesthesia Type: Spinal, Sedation and Local Operative Notes Estimated Blood Loss (mL): 500 Procedure in detail: Implants: Depuy Total Hip Arthroplasty: Depuy [place] Gription size 52 cup? Depuy Actis femoral stem size 4 high offset? 36 mm +1.5 ceramic femoral head? Procedure Summary: 78-year-old female who had a DEXA scan preoperatively indicating a T-score of -1.2. I therefore utilized uncemented fixation with a triple tapered collared stem. She had a relatively deep acetabulum so I did not ream all the way to the floor. The cup was stable without screws so none were utilized. I was able to achieve femoral exposure without a conjoined tendon release. She had a relatively narrow canal and a size 4 stem achieved good rotational stability. I was unable to dislocate her hip with vigorous external rotation of the foot once final implants were in place. Procedure in Detail: This patient was seen preoperatively and evaluated for hip pain which was refractory to numerous nonoperative treatment modalities. Their hip pain correlated with radiographic changes demonstrating significant degeneration in the hip joint. The risks and benefits of continued nonoperative management versus operative management were discussed at length and all of the patient?s questions were answered. Additional educational materials providing further details beyond our discussion in clinic were provided via a publicly available patient education video which included the incidence of medical complications associated with total hip arthroplasty, reasons for revision following total hip arthroplasty, and patient satisfaction rates following total hip arthroplasty. That video can be accessed at [email or web address] . With this understanding of the risks inherent to the procedure, the patient elected to move forward with operative management. Following preoperative optimization, the patient was scheduled for surgery. The patient was met in the preoperative holding area the day of the procedure and all questions were answered. The patient?s nares were swabbed with betadine in order to decolonize them from MRSA. Informed consent was signed and the operative limb was marked with indelible ink.? The patient was brought back to the operating room where anesthesia was induced. The patient was transferred to the [place] table and all bony prominences were padded. The operative site was prepped and draped in the usual sterile fashion. Prior to incision, tranexamic acid and cefazolin were administered. Operative templating images were displayed demonstrating the anticipated implant sizes and correct operative extremity. A timeout procedure was performed verifying the patient?s identity, medical comorbidities, allergies, relevant medications, anesthesia type and the surgical plan. All present were in agreement. The assistance of a physician personnel security assistant was required for positioning, room setup, soft tissue retraction and wound closure. Without this assistance, the procedure would have been significantly more challenging and time consuming.?? A direct anterior approach to the hip was utilized. This was performed with a longitudinal incision through a Heuter interval. The incision was planned 2 cm distal and 2 cm lateral to the ASIS extending towards the lateral patella, in line with the muscle body of the TFL. Following incision, the subcutaneous tissue was dissected while taking care to avoid injury to the lateral femoral cutaneous nerve. The fascia overlying the TFL was identified by dissecting off the overlying fat and identifying perforating vessels to the TFL. The TFL fascia was incised and dissected away from the medial border of the TFL. A cobra retractor was placed over the superior femoral neck between the abductors and the hip capsule and used to reflect the TFL laterally. A [place] self-retainer was then placed in the distal aspect of the wound between the TFL and the rectus femoris. This was tensioned to open up the direct anterior interval and the lateral circumflex vessels were identified and coagulated using electrocautery. The floor of the TFL fascia was incised, exposing the pericapsular fat overlying the hip capsule. A second cobra retractor was placed on the inferior femoral neck. A double-bent soft tissue retractor was placed on the anterior wall of the acetabulum and used to tension the reflected head of rectus femoris, which was then released in order to limit soft tissue tension. A capsulotomy was made in the midline of the anterior hip capsule in line with the femoral neck ending at the vastus tubercle. The double-bent retractor was removed in order to limit the amount of time that a soft tissue retractor remained on the anterior wall and protect the femoral nerve. Tag stitches were placed in the superior and inferior leaflets of the hip capsule. An Oswaldo soft tissue retractor was introduced over the tag stitches and tensioned in the interval between the rectus femoris and the TFL in order to retract and protect those muscles. The cobra retractors were replaced intracapsularly, with one over the superior neck in the pocket created by the base of the greater trochanter and the other on the femoral head. The capsulotomy was extended laterally to the base of the greater trochanter and medially to the lesser trochanter. This required externally rotating the hip. Once the lesser trochanter had been identified, a neck cut was planned according to measurements from preoperative templating. A ruler was cut at the length measured between the superior aspect of the lesser trochanter and the collar of the prosthesis. This line was extended towards the inferior aspect of the lateral cobra retractor to plan a cut which would leave minimal residual femoral neck laterally. The neck was cut at 60 degrees of external rotation along that line. A second cut was performed to remove a large napkin ring and facilitate head extraction. The napkin ring cut and femoral head were removed.?? A broad anterior wall retractor was placed between the labrum and the anterior capsule so that the anterior capsule would prevent capturing and pinching the femoral nerve anteriorly. An additional retractor was placed on the posterior wall. External rotation and traction were applied through the Stand[place] table so that the cut surface of the femoral neck would not restrict access to the acetabulum. The labrum was excised sharply and the pulvinar was excised with electrocautery to limit bleeding from branches of the obturator artery. Acetabular reamers were selected based on preoperative templating and measurements of the excised femoral head. These were introduced into the acetabulum. Fluoroscopy was utilized to replicate a standing AP pelvis radiograph by centering over the pelvis, rotating until there was appropriate symmetry between the obturator foramen, and introducing caudal tilt to match the position of the pubic symphysis relative to the sacrococcygeal junction according to the patient?s anatomy. Fluoroscopy was utilized to ensure appropriate reaming depth. Once satisfied with the reaming depth corresponding to the preoperative template and the pinch fit between the columns, an appropriate sized acetabular cup was selected which would provide 1 mm of press-fit. This cup was introduced and manipulated until appropriate abduction and anteversion angles were obtained with careful attention to appropriate abduction and anteversion angles as evaluated by the position of the cup relative to the anterior and posterior lobo of the acetabulum and the AP fluoroscopy which recreated the patient?s standing radiograph. The cup was impacted into place. Peripheral osteophytes were removed. The acetabular liner was then placed with care to ensure locking of the locking mechanism.? Attention was then turned to the femur. All retractors were removed, traction was released, a retractor was placed in the interval between the hip capsule and the gluteus minimus, and the hip was externally rotated to 90 degrees. Traction was applied through the Standish table to tension the lateral capsule and this was released using electrocautery. Traction was released and a Standish hook was placed posteriorly around the proximal femur at the level of the vastus ridge. The table height was lowered in order to restrict the tension on the anterior structures during hip hyperextension to limit the risk of femoral nerve palsy. With traction off and the hip at 90 degrees of external rotation, the hip was hyperextended and adducted while manually elevating the femur away from the acetabulum with the [place] hook to ensure it would not be caught behind the greater trochanter. An asymmetric retractor was placed over the calcar and a broad double-pronged retractor was placed over the greater trochanter. The tag stitch capturing the lateral leaflet of the capsule was moved to the medial side, leaving the conjoined and piriformis tendons isolated in the face of the greater trochanter. The hip was externally rotated and elevated. A release of the conjoined tendon was not necessary in order to obtain adequate exposure for broaching. The canal was opened with an opening broach and a rasp was used to remove cancellous bone. A rongeur was used to remove the residual lateral bone at the base of the greater trochanter to avoid placing the stem in varus. The femur was then broached to the appropriate sized stem yielding good rotational fit and fill of the canal as well as appropriate version of the stem trial. Neck and head trials were placed, all retractors were removed and the hip was returned to neutral abduction and extension. I then reduced the hip. An AP pelvis fluoroscopic image matching the preoperative standing radiograph was obtained with both lesser trochanters visible and both hips in 40 degrees of external rotation. This demonstrated appropriate leg length and offset. An AP hip fluoroscopic image was obtained with the hip in neutral rotation which demonstrated appropriate canal fill. Hip stability was evaluated with 90 degrees of external rotation and a 45 degree drop test which demonstrated good stability. The hip was dislocated and I returned to the broaching position. The definitive stem was placed and the trunnion was cleaned and dried. I placed a ceramic head onto the trunnion and impacted it into place on the [place] taper.?? All retractors were removed and the hip was reduced. A dilute mixture of betadine and peroxide was used to bathe the soft tissues during final fluoroscopic assessment. Appropriate component positioning was confirmed on an AP pelvis radiograph with the operative and nonoperative legs in 40 degrees of external rotation, evaluating leg length and offset. Appropriate stem fill was evaluated on an AP hip radiograph with the operative leg in neutral rotation. No fractures were identified on these radiographs. Stability was satisfactory with a 90 degree external rotation test as well as a 45 degree drop test. The hip was copiously irrigated with pulse lavage. The capsule was closed with absorbable interrupted suture. The TFL fascia was closed with barbed suture while carefully protecting the lateral femoral cutaneous nerve from entrapment. A mixture of Ropivacaine, Epinephrine, Clonidine and Toradol was infiltrated throughout the soft tissues. The skin was closed with 2-0 and 3-0 sutures. Surgical glue was applied and a soft dressing was placed.??The sponge, instrument and needle counts were reported as being correct at the end of the case.??No obvious complications occurred. The patient was transferred from the Standish table back to a stretcher. The patient emerged from anesthesia without difficulty and was taken to the PACU in a stable condition.? Plan for aftercare: Anterior hip precautions Patient very eager to discharge home today. We will attempt to get her up to the floor and time for physical therapy and if she is able to clear today and is otherwise doing well we will discharge her later today Weightbearing as tolerated Aspirin 81 twice per day for DVT prophylaxis Multimodal pain regimen with no IV opioids ordered Follow up at [facility] in 2 weeks Detailed postoperative instructions available at [email or web address]
[2023-07-06 13:47] VITALS: BP 106/59; PULSE 68; RESP 19; TEMP 36.5; O2SAT 98
[2023-07-06 13:52] VITALS: BP 106/60; PULSE 67; RESP 15; O2SAT 98
[2023-07-06 13:57] VITALS: BP 108/80; PULSE 68; RESP 12; O2SAT 96
[2023-07-06 14:07] VITALS: BP 115/63; PULSE 65; RESP 13; O2SAT 97
[2023-07-06 14:33] VITALS: BMI 27.3
[2023-07-06 14:35] VITALS: BP 120/56; PULSE 68; RESP 16; TEMP 36.4; O2SAT 99
[2023-07-06] MEDS: IBUPROFEN 600 MG TABLET PO (14:42)
[2023-07-06] MEDS: ACETAMINOPHEN 325 MG TABLET 650 MG PO (14:43)
[2023-07-06] MEDS: LACTATED RINGERS 1,000 ML 100 ML IV (14:45)
--- NOTE | 2023-07-06 16:47 | PT.IIE ---
Current Diagnoses Unilateral primary osteoarthritis, left hip (07/06/23) Surgery Performed Operation Date: 07/06/23 10:45 Actual Procedures p Total Hip Arthroplasty/Anterior Approach(Left) - Rohan Leon MD Surgical History (Last Updated 07/02/23 @ 13:10 by Negra Harkins, RN) Anesthesia History of cholecystectomy (~1976) History of tonsillectomy (~1951) Hx of bilateral cataract extraction Hx of vitrectomy [place] teeth removed Medical History (Last Updated 07/02/23 @ 12:49 by Negra Harkins RN) Acquired hypothyroidism (~1963) Allergies (~1963) Aortic valve regurgitation Bilateral hearing loss Bilateral tinnitus Cataracts, bilateral (~1993) Chicken pox (~1951) Diverticular disease (~1994) Diverticulitis Generalized anxiety disorder Herpesviral infection History of COVID-19 (2021) Hypertension Intermittent palpitations (2014) Large breasts Major depressive disorder, recurrent, in partial remission Measles (~1952) Mitral valve regurgitation Mixed hyperlipidemia Mumps (~1950) Preoperative evaluation to rule out surgical contraindication Primary osteoarthritis involving multiple joints Seborrheic keratosis Statin intolerance Tinnitus (~1989) Varicose veins of bilateral lower extremities with other complications Physical Therapy Inpatient Evaluation/Re-Eval M1 PT/OT-IP Prior Functional Status Start: 07/06/23 16:55 Freq: NEEDED Status: Active Protocol: Document 07/06/23 16:47 DLM (Rec: 07/06/23 17:12 DLM [id number]) Medical Review Prior Functional Status Medical History Reviewed Yes Diet/Fluid Consistency Regular Communication WNL Mobility and Gait Independent, using cane to manage hip pain before surgery Activities of Daily Living and IADL's Independent Social History Household Members family Living Arrangements House Number of Floors (Floors) Two Floors Number of Stairs To Enter/Railing? 2 steps with rail Home Environment Standard Height Toilet,Tub/ Shower Home Equipment Front Wheel Walker,Straight Cane,Bedside Commode,Raised Toilet Seat w/Armrests,Abrading Machine Tender ,Sock Aid Employment Status Retired Additional Social History Comment she lives with her Daughter who works Mon-Fri 1/2 bath on main level, bedroom on second floor with full bath M2 PT-IP Current Condition Start: 07/06/23 16:55 Freq: NEEDED Status: Active Protocol: Document 07/06/23 16:47 DLM (Rec: 07/06/23 17:12 [facility] [id number]) Physical Therapy Current Condition Current Condition Evaluation Date 07/06/23 Treatment Diagnosis left CONTRERAS with anterior approach, impaired gait Onset Date 07/06/23 M3 PT-IP Subjective Start: 07/06/23 16:55 Freq: NEEDED Status: Active Protocol: Document 07/06/23 16:47 DLM (Rec: 07/06/23 17:12 [facility] [id number]) Subjective Physical Therapy Visit Type Type Initial Evaluation Visit Start Time 16:00 Visit Stop Time 16:47 Number of CLINICAL SOCIAL WORK THERAPIST Visits 0 Physical Therapy Visit Comments Patient Comments She has to get up a flight of stairs to get to her bedroom at home which is her biggest concern. Patient Goals Discharge home Therapy Pain Assessment Pain When Pain Assessed During Mobility Pain Present Pain Present Pain Reported Location Left Hip Intensity 1 Scale Used Numeric (0 - 10) Description Aching,Tender,With Movement Pain Behaviors Facial Grimacing Pain Management Techniques Apply Cold,Re-positioning M4 PT-IP Mobility and Gait Start: 07/06/23 16:55 Freq: NEEDED Status: Active Protocol: Document 07/06/23 16:47 DLM (Rec: 07/06/23 17:12 [facility] [id number]) PT-Bed Mobility Assessment Supine to Sit Supine to Sit Independent Sit to Supine Sit to Supine Standby Assistance Scooting Scooting to Edge of Bed Independent Scooting Up and Down in Bed Independent PT-Transfer Assessment Sit to and From Stand Sit to and from Stand Independent,Use of Upper Extremities Equipment Transfer Assistive Device Gait Belt,Front Wheeled Walker Transfers Transfer Destination Bed,Chair,Bedside Commode Transfer Technique Stand Step Pivot Transfer Ability Level of Assist Independent,Use of Upper Extremities Comments Mobility Comments Pt incontinent of urine with initial standing without awareness that she needed to urinate. She reports groin area numbness continues after surgery. Pt up to bedside commode to urinate and she had small BM. Coordinated with nursing to get her cleaned up and depends used. Anterior left hip pain made it difficult for her to get left LE back onto the bed but with extra time and using UE's she was able to work it up onto the bed. Gait Assessment Gait Gait Assistance Required: Standby Assistance Distance (Feet) 50 Able to Maintain Weight Bearing Status Yes During Gait Assistive Devices Assistive Device Gait Belt,Front Wheeled Walker Gait Deviations General Gait Pattern Antalgic,Step-to Gait Factors Limiting Gait Function Factors Limiting Gait Function Decreased Activity Tolerance, Decreased Strength,Limited Range of Motion,Pain Comments Gait Comments Pt demonstrates safe use of FWW with training this visit. Her pace is slow but functional. She ambulated 4 times this visit including around her room and to/from wheelchair. Stair Climbing Assessment Evaluation Level of Assist On Stairs Standby Assistance Devices Stair Climbing Assistive Devices Right Railing Technique/Endurance Stair Climbing Direction Ascend and Descend Stair Climbing Technique Step to Step Number of Steps Climbed 3 Query Text: Stair Climbing Set # Repetitions (reps) 2 Comments Stair Climbing Comments She demonstrates good functional strength for stairs . She reports going down the stairs is harder than up at this time. First trial of 3 stairs she used bilateral rail and on the second trial she used one rail. Pt has a cane to use at home if she feels it is needed. She appears able to do more stairs at home. PT-Balance Assessment Sitting Balance and Reactions Static Sitting Balance Ability Normal Dynamic Sitting Balance Ability Normal Standing Balance and Reactions Static Standing Balance Ability Good Dynamic Standing Balance Ability Good Device Used FWW M5 PT-IP Objective Assessments Start: 07/06/23 16:55 Freq: NEEDED Status: Active Protocol: Document 07/06/23 16:47 DLM (Rec: 07/06/23 17:12 [facility] [id number]) Orientation Orientation/Cognition Level of Alertness Alert Orientation Name,Age,Birthday,Month,Date, Year,Day of Week,Place, Situation Language Function Ability No Deficits Noted Safety Awareness Understands Safety Issues Memory Description No Deficits Noted Gross Range of Motion Upper Extremity ROM Assessment Within Functional Limits Lower Extremity ROM Assessment Left Impaired Impairments anterior hip precautions s/p CONTRERAS Strength Upper Extremity Strength Assessment Within Functional Limits Lower Extremity Strength Assessment Left Impaired Hip flex 2+/5 with pain Knee ext 4/5 Ankle DF 5/5 Comments Strength Comments incisional pain is limiting functional hip flexion strength per pt Coordination Assessment Gross Coordination Gross Coordination WNL Sensation Assessment Comments Sensation Comments numbness in groin area and mild in left LE post-op after block, pt reports it is improving Muscle Tone Muscle Tone WNL Yes M6 PT-IP Treatment Start: 07/06/23 16:55 Freq: NEEDED Status: Active Protocol: Document 07/06/23 16:47 DLM (Rec: 07/06/23 17:12 DLM [id number]) Physical Therapy Treatment Exercises Exercises Ankle Pumps,Gluteal Sets,Quad Sets,Heel Slides Education Education Provided Precautions,Weight Bearing Status,Post-Op Packet,Safety Other Treatments Other Treatment Performed Her Daughter is present this visit and participate in education and training M7 PT-IP Assessment and Plan Start: 07/06/23 16:55 Freq: NEEDED Status: Active Protocol: Document 07/06/23 16:47 DLM (Rec: 07/06/23 17:12 DL [id number]) PT Summary Assessment and Plan Potential Rehabilitation Potential Excellent Status of Condition at Evaluation Evolving Summary Impairments Pain,ROM,Strength,Balance,Bed Mobility,Transfers,Gait, Activity Tolerance Progress Towards Goals Safe For Discharge Assessment Summary Radha is alert and has voiced desire to go home today. She demonstrates good progress in therapy this visit. Her pain appears well controlled. She is able to demonstrate safe gait pattern with the FWW. She is able to go up/down stairs with step-to gait pattern. She has a supportive Daughter to assist at discharge. She had no nausea and no light- headedness with activity. She appears safe to discharge home when she is medically stable. Notified her nurse that she cleared Physical Therapy for discharge home today. Frequency of Treatment Frequency Of Treatment Discharge Treatment Plan Other Recommendations and Next Treatment training completed this visit Focus Precautions Anterior Hip Precautions No Hip Extension,No Hip External Rotation Weight Bearing Status Weight Bearing Status Weight Bear as Tolerated Allowed Weight Bearing Amount (enter % left LE or #) (%) Recommendations To Nursing Amount of Assist Needed Standby Assistance Discharge Recommendations PT Discharge Recommendations Home with Assistance Other Discharge Recommendations Daughter to assist at discharge Transportation Needs at Discharge Private Vehicle
--- NOTE | 2023-07-06 17:18 | P.PN_ITS ---
Subjective Subjective Interval history: Patient seen postoperatively on the inpatient floor. Resting comfortably eating dinner. No acute distress. Pain well controlled. Dressing clean dry and intact. Flexion and extension intact in the knee hallux and ankle. Patient reports having ambulated well with physical therapy including going up and downstairs. She strongly desires to discharge home tonight. We will begin the discharge process and follow up with her in the outpatient setting Exam Vital Signs (past 8 hours): - 07/06/23 09:57 07/06/23 13:47 07/06/23 13:52 Temperature 98.1 F 97.7 F Pulse Rate 65 68 67 Respiratory Rate 16 19 15 Blood Pressure 144/59 H 106/59 L 106/60 Pulse Oximetry 96 98 98 Oxygen Delivery Method Room Air Room Air Room Air Oxygen Flow Rate 07/06/23 13:57 07/06/23 14:07 07/06/23 14:35 Temperature 97.5 F L Pulse Rate 68 65 68 Respiratory Rate 12 13 16 Blood Pressure 108/80 115/63 120/56 L Pulse Oximetry 96 97 99 Oxygen Delivery Method Room Air Room Air Oxygen Flow Rate 0 Oxygen Delivery Method Room Air Oxygen Flow Rate 0 [facility] Medical History (Updated 07/02/23 @ 12:49 by Negra Harkins RN) History of COVID-19 (2021) Preoperative evaluation to rule out surgical contraindication Major depressive disorder, recurrent, in partial remission Herpesviral infection Generalized anxiety disorder Primary osteoarthritis involving multiple joints Mixed hyperlipidemia Statin intolerance Varicose veins of bilateral lower extremities with other complications Diverticulitis Large breasts Seborrheic keratosis Bilateral tinnitus Bilateral hearing loss Hypertension Allergies (~1963) Mumps (~1950) Measles (~1952) Chicken pox (~1951) Tinnitus (~1989) Cataracts, bilateral (~1993) Diverticular disease (~1994) Aortic valve regurgitation Mitral valve regurgitation Intermittent palpitations (2014) Acquired hypothyroidism (~1963) Surgical History (Updated 07/02/23 @ 13:10 by Negra Harkins RN) [place] teeth removed Hx of vitrectomy Hx of bilateral cataract extraction Anesthesia History of cholecystectomy (~1976) History of tonsillectomy (~1951) Family History Father History of heart disease Mother History of heart disease Sister Dementia Grandmother Dementia Grandfather History of heart disease Grandmother Ulcer Social History details: Lives with daughter, 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
== END 2023-07-06 18:43 | disposition home or self-care (01) ==
LOC: OR 08:53 → AC 12:04
PROVIDERS: PCP Internal Medicine; Referring Provider Orthopaedic Surgery Adult Reconstructive Orthopaedic Surgery; Visit Provider Orthopaedic Surgery Adult Reconstructive Orthopaedic Surgery
PROC: (CPT 27130; principal; 2023-07-06 10:45)
DX: M16.12 Unilateral primary osteoarthritis, left hip (principal); M25.752 Osteophyte, left hip
CPT/HCPCS: 27130; 73502; 76000; 97162; C1776; J0690; J2405; J2704; J3010

== ENCOUNTER → 2024-02-28 14:31 | Outpatient (CLI) | payer MEDICARE, SELFPAY ==
--- NOTE | 2024-02-28 14:32 | DI.MG.S_ITS ---
BILATERAL DIGITAL SCREENING MAMMOGRAM 3D/2D WITH CAD: 02/28/2024 CLINICAL: Routine screening. Family history of breast cancer. Comparison is made to exams dated: 12/20/2022 mammogram, 11/02/2021 mammogram, and 10/27/2020 mammogram - [facility]. There are scattered areas of fibroglandular density (category b / 25%-50% glandular tissue). Current study was also evaluated with a Computer Aided Detection (CAD) system. No significant masses, calcifications, or other findings are seen in either breast. There has been no significant interval change. IMPRESSION: NEGATIVE There is no mammographic evidence of malignancy. A 1 year screening mammogram is recommended. Based on the Tyrer Cuzick model (a risk assessment model) the patient's lifetime risk is 2.4% and her 10 year risk is 0.0%. According to the ACR, ACS, and NCCN guidelines, an annual breast MRI exam along with mammogram is recommended if the patient's lifetime risk is 20% or greater. This exam was interpreted at Station ID: [id number]. NOTE: For mammograms, a report in lay terms will be sent to the patient. Approximately 15% of breast malignancies will not be visualized mammographically. In the management of a palpable breast mass, a negative mammogram must not discourage biopsy of a clinically suspicious lesion. Electronically Signed By: Kain lugo/annette:02/29/2024 07:36:53 letter sent: Normal Exam ACR BI-RADS Category 1: Negative
== END ==
PROVIDERS: PCP Family Medicine; Referring Provider Family Medicine; Visit Provider Family Medicine
DX: Z12.31 Encounter for screening mammogram for malignant neoplasm of breast (principal); Z80.3 Family history of malignant neoplasm of breast
CPT/HCPCS: 77063; 77067

== ENCOUNTER → 2024-09-03 08:18 | Outpatient (CLI) | payer MEDICARE, SELFPAY ==
[2024-09-03 09:02] LABS: Add Manual Diff / Slide Review NO; Basophils Absolute Auto 0 /uL (0-100); Basophils Percent Auto 0.7 % (0-2); Eosinophils Absolute Auto 300 /uL (0-450); Eosinophils Percent Auto 5.4 % (2-4); Hematocrit 38.1 % (36-46); Hemoglobin 12.7 g/dL (12.0-16.0); Lymphocytes Absolute Auto 1600 /uL (1100-4500); Lymphocytes Percent Auto 28.2 % (25-40); Mean Corpuscular HGB Conc 33.4 % (30-36); Mean Corpuscular Hemoglobin 31.6 PG (26-34); Mean Corpuscular Volume 94.6 fL (80-100); Monocytes Absolute Auto 400 /uL (0-900); Monocytes Percent Auto 7.9 % (3-14); Neutrophils Absolute Auto 3300 /uL (1500-7000); Neutrophils Percent Auto 57.8 % (50-75); Platelet Count 262 X10^3/uL (150-400); Red Blood Cell Count 4.03 X10^6/uL (4.0-5.2); Red Cell Distribution Width 13.2 % (11.6-14.8); White Blood Cell Count 5.6 X10^3/uL (4.5-11.0)
[2024-09-03 09:18] LABS: Alanine Aminotransferase 21 IU/L (<35); Albumin 4.1 g/dL (3.5-5.0); Albumin Globulin Ratio 1.6 (1.0-2.8); Alkaline Phosphatase 59 U/L (38-126); Aspartate Aminotransferase 26 IU/L (14-36); BUN Creatinine Ratio 19.2 (6-22); Bilirubin Total 0.6 mg/dL (0.2-1.3); Blood Urea Nitrogen 15 mg/dL (7-17); Calcium 9.3 mg/dL (8.4-10.2); Carbon Dioxide 28 mmol/L (22-32); Chloride 105 mmol/L (98-107); Cholesterol 266 mg/dL (140-199); Estimated Glomerular Filt Rate > 60 mL/min (>60); Globulin 2.5 g/dL (1.7-4.1); Glucose 94 mg/dL (70-99); HDL Cholesterol 54 mg/dL (40-60); HEMOLYSIS < 15 (0-50); LDL Cholesterol Calculated 172 mg/dL (<100); Potassium 4.1 mmol/L (3.4-5.1); Sodium 141 mmol/L (137-145); Total Protein 6.6 g/dL (6.3-8.2); Triglycerides 198 mg/dL (35-150)
[2024-09-03 09:49] LABS: Thyroid Stimulating Hormone 2.17 uIU/mL (0.47-4.68)
[2024-09-03 10:02] LABS: Vitamin D 25 Hydroxy (D3) 35.1 ng/mL (30.0-100.0)
== END ==
PROVIDERS: PCP Family Medicine; Referring Provider Family Medicine; Visit Provider Family Medicine
DX: E78.5 Hyperlipidemia, unspecified (principal); E55.9 Vitamin D deficiency, unspecified; E03.9 Hypothyroidism, unspecified; F41.1 Generalized anxiety disorder; M15.9 Polyosteoarthritis, unspecified; E78.2 Mixed hyperlipidemia; L65.9 Nonscarring hair loss, unspecified
CPT/HCPCS: 36415; 80053; 80061; 82306; 84443; 85025

== ENCOUNTER 2024-10-08 14:30 | Outpatient (RCR) | payer MEDICARE, SELFPAY ==
--- NOTE | 2024-09-24 15:50 | PT.OIE ---
Current Diagnoses Other chronic pain (09/24/24) Polyosteoarthritis, unspecified (09/24/24) Pain in left hip (09/24/24) Low back pain, unspecified (09/24/24) Other specified disorders of bone density and structure, unspecified site (09/24/24) Presence of left artificial hip joint (09/24/24) Past Medical History (Last Updated 09/01/24 @ 14:05 by Johana Duval DO) Acquired hypothyroidism (~1963) Allergies (~1963) Aortic valve regurgitation Bilateral hearing loss Bilateral tinnitus Cataracts, bilateral (~1993) Chicken pox (~1951) Diverticular disease (~1994) Diverticulitis Generalized anxiety disorder Herpesviral infection History of COVID-19 (2021) Hypertension Intermittent palpitations (2014) Large breasts Major depressive disorder, recurrent, in partial remission Measles (~1952) Mitral valve regurgitation Mixed hyperlipidemia Mumps (~1950) Osteopenia Preoperative evaluation to rule out surgical contraindication Primary osteoarthritis involving multiple joints Seborrheic keratosis Statin intolerance Tinnitus (~1989) Varicose veins of bilateral lower extremities with other complications Past Surgical History (Last Reviewed 09/04/23 @ 05:25 by Magnus Prince MD) Anesthesia History of cholecystectomy (~1976) History of tonsillectomy (~1951) Hx of bilateral cataract extraction Hx of vitrectomy [place] teeth removed Visit Care Team Role Provider Type Johana Duval DO Attending Provider Physician Family Provider Primary Care Provider Referring Provider Specialty: Family Practice Address: [address] [place] [address], [facility] Email: [email or web address] Physical Therapy Initial Evaluation PT-OP-A Visit Information Start: 09/24/24 14:27 Freq: Status: Active Protocol: Document 09/24/24 14:28 BL (Rec: 09/24/24 15:50 BL Laptop) Out-Patient Physical Therapy Visit Information Visit Information Visit Type Initial Evaluation Visit Start Time 14:30 Visit Stop Time 15:10 Visit Number (1) 1/10 Number of [place] [employer]ER Visits 0 Evaluation Information Evaluation Date 09/24/24 PT-OP-C Subjective Start: 09/24/24 14:27 Freq: Status: Active Protocol: Document 09/24/24 14:28 BL (Rec: 09/24/24 15:50 BL Laptop) OP-PT Subjective Patient Comments Patient Comments Pt presents to the clinic this date with concerns of L hip pain, pt reports she had her L hip replaced in june of 2023. Pt states surgery went well but feels she has been off balance since surgery as well as continues to have pain in L hip on lateral side, feels like a deep knot. Pt reports pain in left hip is tender to the touch and describes the pain as sharp and shooting. Pt states left hip is stiff and feels its difficult to move after 30 minutes to an hour of sitting. Pt reports feeling better with movement and being on her feet. Reports occasional clicking in her R knee at times, describes this as a catching feeling. Pt reports a popping sensation in her R knee that has been present for several years. Patient Reported Same Progress Patient Questionnaires Lower Extremity Functional Scale LEFS Score 38% function PT-OP-D Balance Start: 09/24/24 14:27 Freq: Status: Active Protocol: Document 09/24/24 14:28 BL (Rec: 09/24/24 15:50 BL Laptop) Balance Tests Single Limb Standing Single Limb- Right 1 sec over 3 trials Single Limb- Left 3 sec over 3 trials Other Other Balance Tests I Performed Lopez Balance Assessment Evaluation Sitting to Standing Independent w/out Hands Ability Unsupported Stance Safely- 2 minutes Sitting Unsupported, Safely- 2 minutes Feet on Floor Standing to Sitting Safely, Minimal Hand Use Ability Transfer Ability Safely, Minimal Hand Use Unsupported Stance- Safely, 10 seconds Eyes Closed Unsupported Stance- Independent, 1 minute Eyes Open Reaching Forward Safely, 5 inches Standing Pick- Up Object From Independent/Safe Floor Look Behind Shoulder Shifts Weight Well - Standing Turning 360 Degrees Turns Bilateral, < 4 secs Unsupported Stance, (I)- 8 Steps in 20 secs Alternating Feet on Stair Unsupported Tandem Holds Tandem- 30 seconds Stance Unilateral Leg Lifts Leg/Unable to Hold Stance Total Score Lopez Total Score ( 51 out of 56 points) PT-OP-H Neuro Start: 09/24/24 14:27 Freq: Status: Active Protocol: Document 09/24/24 14:28 BL (Rec: 09/24/24 15:50 BL Laptop) Sensation Evaluation Comments Summary Comments Pt reports tingling sensation down outside of left leg towards evening time. Coordination Evaluation Comments Coordination no coordination deficits noted this date. Comments PT-OP-J Posture/Palpation/Skin Start: 09/24/24 14:27 Freq: Status: Active Protocol: Document 09/24/24 14:28 BL (Rec: 09/24/24 15:50 BL Laptop) Posture Evaluation Comments Posture Comments Pt sits with slight R sided shift, demos posterior lean with posterior pelvic tilt. Palpation Assessment Location R hip Palpation Details Pt point tender through R SI area and L piriformis and lateral thigh area in IT band and gluteal med area PT-OP-K Range of Motion Start: 09/24/24 14:27 Freq: Status: Active Protocol: Document 09/24/24 14:28 BL (Rec: 09/24/24 15:50 BL Laptop) Lumbar Spine Range of Motion Lumbar Spine Active Percentage Testing Position Sitting Flexion 75 Extension 50 Rotation Left 75 Rotation Right 75 ROM Limitations Soft Tissue Tightness Hip Goniometric Range of Motion Hip Right Hip ROM WFL Yes left Hip ROM WFL Yes PT-OP-M Strength Start: 09/24/24 14:27 Freq: Status: Active Protocol: Document 09/24/24 14:28 BL (Rec: 09/24/24 15:50 BL Laptop) Trunk Strength Trunk Manual Muscle Testing Testing Position Supine Comments Pt unable to maintain back flat with lowering of LE in supine, able to lower to 45 deg Hip Strength Hip Manual Muscle Testing rigth Flexion (L2) 4 Good Extension (S1) 4- Good- Abduction 4 Good Adduction 4 Good Left Flexion (L2) 4- Good- Extension (S1) 4- Good- Abduction 4 Good Adduction 4 Good Knee Strength Knee Manual Muscle Testing rigth Flexion (S2) 4 Good Extension (L3) 4+ Good+ Left Flexion (S2) 4- Good- Extension (L3) 4+ Good+ PT-OP-Q Treatments Start: 09/24/24 14:27 Freq: Status: Active Protocol: Document 09/24/24 14:28 BL (Rec: 09/24/24 15:50 BL Laptop) Therapeutic Exercises Supine Exercises core Supine Exercise Name TA and core activation with breathing, Bridges, LTR Reps/Minutes 10x PT-OP-T Assessment and Plan Start: 09/24/24 14:27 Freq: Status: Active Protocol: Document 09/24/24 14:28 BL (Rec: 09/24/24 15:50 BL Laptop) Physical Therapy Assessment Rehab Potential Rehabilitation Good Potential Evaluation Complexity Number of Personal 1-2 Factors/ Comorbidities Number of Body 3 Systems Impaired Clinical Evolving Presentation at Evaluation Impairments Impairments Activity Tolerance,Balance,Functional Activities, Functional Mobility,Gait,Pain,Posture,ROM,Sensation, Soft Tissue Mobility,Strength,Transfers Goals 3 Half-Way Goal (LTG) Pt will demo improved shirley hip extension strength in prone to 4/5 by DC for improved functional mobility with ADLs. 2 Publications Designer Goal (LTG) Pt will be able to stand on L leg in SLS for 10 sec by DC for improved safety with changing positions. 1 Short Term Goal (STG Pt will be ind with HEP within 2 visits in order to ) progress toward snf therapy goals outside of therapy visits. Half-Way Goal (LTG) Pt report a decrease in her hip discomfort to 2/10 with normal daily activity by DC for improved quality of life. Assessment Summary Assessment Pt presents to the clinic with concerns for L hip pain and decreased balance, upon evaluation pt demos decreased shirley general hip strength with increased deficits noted L>R, pt is point tender to L side with increased tissue tension noted. Pt also demos decreased static and dynamic standing balance that are leading to deficits in gait and increased discomfort with ADLS. Pt will benefit from skilled Physical Therapy intervention for strength and endurance training along with dynamic balance training for safety with mobility. Physical Therapy Plan Frequency and Duration Frequency of 2x/Week Treatment Duration of 12 treatment (weeks) Plan of Care Start 09/24/24 Date Plan of Care End 12/17/24 Date Therapeutic Interventions Therapeutic Balance Training,Coordination Training,Gait Training, Interventions Home Exercise Program,Manual Therapy,Neuromuscular Re- education,Orthotic/Prosthetic Management,Patient/ Caregiver Education,Self-Care/Home Management,Soft Tissue Mobilization,Taping,Therapeutic Activities, Therapeutic Exercises Modalities Cold Pack/Ice Massage,Electric Stimulation,Hot Packs, Infrared Therapy,Iontophoresis,Traction- Mechanical, Ultrasound Next Visit Focus/Plan Next Note Type Treatment Note Next Visit Plan Continue to advance HEP hip strengthening, core activation, soft tissue mobilization to L hip and lateral thigh, thoracic and lumbar mobility.
--- NOTE | 2024-09-24 15:51 | PT.OPPOC ---
Physical, Occupational & Speech Therapy At [facility] Current Diagnoses Other chronic pain (09/24/24) Polyosteoarthritis, unspecified (09/24/24) Pain in left hip (09/24/24) Low back pain, unspecified (09/24/24) Other specified disorders of bone density and structure, unspecified site (09/24/24) Presence of left artificial hip joint (09/24/24) Visit Care Team Role Provider Type Johana Duval DO Attending Provider Physician Family Provider Primary Care Provider Referring Provider Specialty: Family Practice Address: [address] [place] [address], [address], [facility] Email: [email or web address] Plan Of Care PT-OP-T Assessment and Plan Start: 09/24/24 14:27 Freq: Status: Active Protocol: Document 09/24/24 14:28 BL (Rec: 09/24/24 15:50 BL Laptop) Physical Therapy Assessment Rehab Potential Rehabilitation Good Potential Evaluation Complexity Number of Personal 1-2 Factors/ Comorbidities Number of Body 3 Systems Impaired Clinical Evolving Presentation at Evaluation Impairments Impairments Activity Tolerance,Balance,Functional Activities, Functional Mobility,Gait,Pain,Posture,ROM,Sensation, Soft Tissue Mobility,Strength,Transfers Goals 3 Fire Marshal Goal (LTG) Pt will demo improved shirley hip extension strength in prone to 4/5 by DC for improved functional mobility with ADLs. 2 Shelter Goal (LTG) Pt will be able to stand on L leg in SLS for 10 sec by DC for improved safety with changing positions. 1 Short Term Goal (STG Pt will be ind with HEP within 2 visits in order to ) progress toward longterm therapy goals outside of therapy visits. Shelter Goal (LTG) Pt report a decrease in her hip discomfort to 2/10 with normal daily activity by DC for improved quality of life. Assessment Summary Assessment Pt presents to the clinic with concerns for L hip pain and decreased balance, upon evaluation pt demos decreased shirley general hip strength with increased deficits noted L>R, pt is point tender to L side with increased tissue tension noted. Pt also demos decreased static and dynamic standing balance that are leading to deficits in gait and increased discomfort with ADLS. Pt will benefit from skilled Physical Therapy intervention for strength and endurance training along with dynamic balance training for safety with mobility. Physical Therapy Plan Frequency and Duration Frequency of 2x/Week Treatment Duration of 12 treatment (weeks) Plan of Care Start 09/24/24 Plan of Care End 12/17/24 Date Therapeutic Interventions Therapeutic Balance Training,Coordination Training,Gait Training, Interventions Home Exercise Program,Manual Therapy,Neuromuscular Re- education,Orthotic/Prosthetic Management,Patient/ Caregiver Education,Self-Care/Home Management,Soft Tissue Mobilization,Taping,Therapeutic Activities, Therapeutic Exercises Modalities Cold Pack/Ice Massage,Electric Stimulation,Hot Packs, Infrared Therapy,Iontophoresis,Traction- Mechanical, Ultrasound Next Visit Focus/Plan Next Note Type Treatment Note Next Visit Plan Continue to advance HEP hip strengthening, core activation, soft tissue mobilization to L hip and lateral thigh, thoracic and lumbar mobility. Plan of Care Dates Plan of Care Start Date 09/24/24 Plan of Care End Date 12/17/24 Electronically Signed by: Manjit Ortega PT 09/24/24 [id number] If you are in agreement with this Plan of Care, please return a signed and dated copy. I have reviewed this Plan of Care and certify that the skilled therapy services above are required to meet the patient?s needs. Physician Signature Date Printed Name and Credentials Clinical Instructor Signature Printed Name and Credentials
--- NOTE | 2024-09-24 16:11 | PT.OIE ---
Current Diagnoses Other chronic pain (09/24/24) Polyosteoarthritis, unspecified (09/24/24) Pain in left hip (09/24/24) Low back pain, unspecified (09/24/24) Other specified disorders of bone density and structure, unspecified site (09/24/24) Presence of left artificial hip joint (09/24/24) Past Medical History (Last Updated 09/01/24 @ 14:05 by Johana Duval DO) Acquired hypothyroidism (~1963) Allergies (~1963) Aortic valve regurgitation Bilateral hearing loss Bilateral tinnitus Cataracts, bilateral (~1993) Chicken pox (~1951) Diverticular disease (~1994) Diverticulitis Generalized anxiety disorder Herpesviral infection History of COVID-19 (2021) Hypertension Intermittent palpitations (2014) Large breasts Major depressive disorder, recurrent, in partial remission Measles (~1952) Mitral valve regurgitation Mixed hyperlipidemia Mumps (~1950) Osteopenia Preoperative evaluation to rule out surgical contraindication Primary osteoarthritis involving multiple joints Seborrheic keratosis Statin intolerance Tinnitus (~1989) Varicose veins of bilateral lower extremities with other complications Past Surgical History (Last Reviewed 09/04/23 @ 05:25 by Magnus Prince MD) Anesthesia History of cholecystectomy (~1976) History of tonsillectomy (~1951) Hx of bilateral cataract extraction Hx of vitrectomy [place] teeth removed Visit Care Team Role Provider Type Johana Duval DO Attending Provider Physician Family Provider Primary Care Provider Referring Provider Specialty: Family Practice Address: [address] [place] [address], [facility] Email: [email or web address] Physical Therapy Initial Evaluation PT-OP-A Visit Information Start: 09/24/24 14:27 Freq: Status: Active Protocol: Document 09/24/24 14:28 BL (Rec: 09/24/24 15:50 BL Laptop) Out-Patient Physical Therapy Visit Information Visit Information Visit Type Initial Evaluation Visit Start Time 14:30 Visit Stop Time 15:10 Visit Number (1) 1/10 Number of CARBON LAMP CLEANER Visits 0 Evaluation Information Evaluation Date 09/24/24 PT-OP-C Subjective Start: 09/24/24 14:27 Freq: Status: Active Protocol: Document 09/24/24 14:28 BL (Rec: 09/24/24 15:50 BL Laptop) OP-PT Subjective Patient Comments Patient Comments Pt presents to the clinic this date with concerns of L hip pain, pt reports she had her L hip replaced in june of 2023. Pt states surgery went well but feels she has been off balance since surgery as well as continues to have pain in L hip on lateral side, feels like a deep knot. Pt reports pain in left hip is tender to the touch and describes the pain as sharp and shooting. Pt states left hip is stiff and feels its difficult to move after 30 minutes to an hour of sitting. Pt reports feeling better with movement and being on her feet. Reports occasional clicking in her R knee at times, describes this as a catching feeling. Pt reports a popping sensation in her R knee that has been present for several years. Patient Reported Same Progress Patient Questionnaires Lower Extremity Functional Scale LEFS Score 38% function PT-OP-D Balance Start: 09/24/24 14:27 Freq: Status: Active Protocol: Document 09/24/24 14:28 BL (Rec: 09/24/24 15:50 BL Laptop) Balance Tests Single Limb Standing Single Limb- Right 1 sec over 3 trials Single Limb- Left 3 sec over 3 trials Other Other Balance Tests I Performed Lopez Balance Assessment Evaluation Sitting to Standing Independent w/out Hands Ability Unsupported Stance Safely- 2 minutes Sitting Unsupported, Safely- 2 minutes Feet on Floor Standing to Sitting Safely, Minimal Hand Use Ability Transfer Ability Safely, Minimal Hand Use Unsupported Stance- Safely, 10 seconds Eyes Closed Unsupported Stance- Independent, 1 minute Eyes Open Reaching Forward Safely, 5 inches Standing Pick- Up Object From Independent/Safe Floor Look Behind Shoulder Shifts Weight Well - Standing Turning 360 Degrees Turns Bilateral, < 4 secs Unsupported Stance, (I)- 8 Steps in 20 secs Alternating Feet on Stair Unsupported Tandem Holds Tandem- 30 seconds Stance Unilateral Leg Lifts Leg/Unable to Hold Stance Total Score Lpoez Total Score ( 51 out of 56 points) PT-OP-H Neuro Start: 09/24/24 14:27 Freq: Status: Active Protocol: Document 09/24/24 14:28 BL (Rec: 09/24/24 15:50 BL Laptop) Sensation Evaluation Comments Summary Comments Pt reports tingling sensation down outside of left leg towards evening time. Coordination Evaluation Comments Coordination no coordination deficits noted this date. Comments PT-OP-J Posture/Palpation/Skin Start: 09/24/24 14:27 Freq: Status: Active Protocol: Document 09/24/24 14:28 BL (Rec: 09/24/24 15:50 BL Laptop) Posture Evaluation Comments Posture Comments Pt sits with slight R sided shift, demos posterior lean with posterior pelvic tilt. Palpation Assessment Location R hip Palpation Details Pt point tender through R SI area and L piriformis and lateral thigh area in IT band and gluteal med area PT-OP-K Range of Motion Start: 09/24/24 14:27 Freq: Status: Active Protocol: Document 09/24/24 14:28 BL (Rec: 09/24/24 15:50 BL Laptop) Lumbar Spine Range of Motion Lumbar Spine Active Percentage Testing Position Sitting Flexion 75 Extension 50 Rotation Left 75 Rotation Right 75 ROM Limitations Soft Tissue Tightness Hip Goniometric Range of Motion Hip Right Hip ROM WFL Yes left Hip ROM WFL Yes PT-OP-M Strength Start: 09/24/24 14:27 Freq: Status: Active Protocol: Document 09/24/24 14:28 BL (Rec: 09/24/24 15:50 BL Laptop) Trunk Strength Trunk Manual Muscle Testing Testing Position Supine Comments Pt unable to maintain back flat with lowering of LE in supine, able to lower to 45 deg Hip Strength Hip Manual Muscle Testing rigth Flexion (L2) 4 Good Extension (S1) 4- Good- Abduction 4 Good Adduction 4 Good Left Flexion (L2) 4- Good- Extension (S1) 4- Good- Abduction 4 Good Adduction 4 Good Knee Strength Knee Manual Muscle Testing rigth Flexion (S2) 4 Good Extension (L3) 4+ Good+ Left Flexion (S2) 4- Good- Extension (L3) 4+ Good+ PT-OP-Q Treatments Start: 09/24/24 14:27 Freq: Status: Active Protocol: Document 09/24/24 14:28 BL (Rec: 09/24/24 15:50 BL Laptop) Therapeutic Exercises Supine Exercises core Supine Exercise Name TA and core activation with breathing, Bridges, LTR Reps/Minutes 10x PT-OP-T Assessment and Plan Start: 09/24/24 14:27 Freq: Status: Active Protocol: Document 09/24/24 14:28 BL (Rec: 09/24/24 15:50 BL Laptop) Physical Therapy Assessment Rehab Potential Rehabilitation Good Potential Evaluation Complexity Number of Personal 1-2 Factors/ Comorbidities Number of Body 3 Systems Impaired Clinical Evolving Presentation at Evaluation Impairments Impairments Activity Tolerance,Balance,Functional Activities, Functional Mobility,Gait,Pain,Posture,ROM,Sensation, Soft Tissue Mobility,Strength,Transfers Goals 3 Penitentiary Goal (LTG) Pt will demo improved shirley hip extension strength in prone to 4/5 by DC for improved functional mobility with ADLs. 2 Hardware Assembler Goal (LTG) Pt will be able to stand on L leg in SLS for 10 sec by DC for improved safety with changing positions. 1 Short Term Goal (STG Pt will be ind with HEP within 2 visits in order to ) progress toward senior living therapy goals outside of therapy visits. Penitentiary Goal (LTG) Pt report a decrease in her hip discomfort to 2/10 with normal daily activity by DC for improved quality of life. Assessment Summary Assessment Pt presents to the clinic with concerns for L hip pain and decreased balance, upon evaluation pt demos decreased shirley general hip strength with increased deficits noted L>R, pt is point tender to L side with increased tissue tension noted. Pt also demos decreased static and dynamic standing balance that are leading to deficits in gait and increased discomfort with ADLS. Pt will benefit from skilled Physical Therapy intervention for strength and endurance training along with dynamic balance training for safety with mobility. Physical Therapy Plan Frequency and Duration Frequency of 2x/Week Treatment Duration of 12 treatment (weeks) Plan of Care Start 09/24/24 Date Plan of Care End 12/17/24 Date Therapeutic Interventions Therapeutic Balance Training,Coordination Training,Gait Training, Interventions Home Exercise Program,Manual Therapy,Neuromuscular Re- education,Orthotic/Prosthetic Management,Patient/ Caregiver Education,Self-Care/Home Management,Soft Tissue Mobilization,Taping,Therapeutic Activities, Therapeutic Exercises Modalities Cold Pack/Ice Massage,Electric Stimulation,Hot Packs, Infrared Therapy,Iontophoresis,Traction- Mechanical, Ultrasound Next Visit Focus/Plan Next Note Type Treatment Note Next Visit Plan Continue to advance HEP hip strengthening, core activation, soft tissue mobilization to L hip and lateral thigh, thoracic and lumbar mobility.
--- NOTE | 2024-09-26 17:16 | PT.OTN ---
Current Diagnoses Other chronic pain (09/26/24) Polyosteoarthritis, unspecified (09/26/24) Pain in left hip (09/26/24) Low back pain, unspecified (09/26/24) Other specified disorders of bone density and structure, unspecified site (09/26/24) Presence of left artificial hip joint (09/26/24) Physical Therapy Treatment Note PT-OP-A Visit Information Start: 09/24/24 14:27 Freq: Status: Active Protocol: Document 09/26/24 16:14 BL (Rec: 09/26/24 17:16 BL Laptop) Out-Patient Physical Therapy Visit Information Visit Information Visit Type Treatment Note Visit Start Time 16:15 Visit Stop Time 16:55 Visit Number (2) 2/ Number of BRONC BUSTER Visits 0 PT-OP-C Subjective Start: 09/24/24 14:27 Freq: Status: Active Protocol: Document 09/26/24 16:14 BL (Rec: 09/26/24 17:16 BL Laptop) OP-PT Subjective Patient Comments Patient Comments Pt reports to the clinic this date and reports she is doing well, states overall feels about the same, states her HEP is going well. No new concerns this date. Patient Reported Same Progress PT-OP-D Balance Start: 09/24/24 14:27 Freq: Status: Active Protocol: Document 09/24/24 14:28 BL (Rec: 09/24/24 15:50 BL Laptop) Balance Tests Single Limb Standing Single Limb- Right 1 sec over 3 trials Single Limb- Left 3 sec over 3 trials Other Other Balance Tests DGI Performed Lopez Balance Assessment Evaluation Sitting to Standing Independent w/out Hands Ability Unsupported Stance Safely- 2 minutes Sitting Unsupported, Safely- 2 minutes Feet on Floor Standing to Sitting Safely, Minimal Hand Use Ability Transfer Ability Safely, Minimal Hand Use Unsupported Stance- Safely, 10 seconds Eyes Closed Unsupported Stance- Independent, 1 minute Eyes Open Reaching Forward Safely, 5 inches Standing Pick- Up Object From Independent/Safe Floor Look Behind Shoulder Shifts Weight Well - Standing Turning 360 Degrees Turns Bilateral, < 4 secs Unsupported Stance, (I)- 8 Steps in 20 secs Alternating Feet on Stair Unsupported Tandem Holds Tandem- 30 seconds Stance Unilateral Leg Lifts Leg/Unable to Hold Stance Total Score Lopez Total Score ( 51 out of 56 points) PT-OP-H Neuro Start: 09/24/24 14:27 Freq: Status: Active Protocol: Document 09/24/24 14:28 BL (Rec: 09/24/24 15:50 BL Laptop) Sensation Evaluation Comments Summary Comments Pt reports tingling sensation down outside of left leg towards evening time. Coordination Evaluation Comments Coordination no coordination deficits noted this date. Comments PT-OP-J Posture/Palpation/Skin Start: 09/24/24 14:27 Freq: Status: Active Protocol: Document 09/24/24 14:28 BL (Rec: 09/24/24 15:50 BL Laptop) Posture Evaluation Comments Posture Comments Pt sits with slight R sided shift, demos posterior lean with posterior pelvic tilt. Palpation Assessment Location R hip Palpation Details Pt point tender through R SI area and L piriformis and lateral thigh area in IT band and gluteal med area PT-OP-K Range of Motion Start: 09/24/24 14:27 Freq: Status: Active Protocol: Document 09/24/24 14:28 BL (Rec: 09/24/24 15:50 BL Laptop) Lumbar Spine Range of Motion Lumbar Spine Active Percentage Testing Position Sitting Flexion 75 Extension 50 Rotation Left 75 Rotation Right 75 ROM Limitations Soft Tissue Tightness Hip Goniometric Range of Motion Hip Right Hip ROM WFL Yes left Hip ROM WFL Yes PT-OP-M Strength Start: 09/24/24 14:27 Freq: Status: Active Protocol: Document 09/24/24 14:28 BL (Rec: 09/24/24 15:50 BL Laptop) Trunk Strength Trunk Manual Muscle Testing Testing Position Supine Comments Pt unable to maintain back flat with lowering of LE in supine, able to lower to 45 deg Hip Strength Hip Manual Muscle Testing rigth Flexion (L2) 4 Good Extension (S1) 4- Good- Abduction 4 Good Adduction 4 Good Left Flexion (L2) 4- Good- Extension (S1) 4- Good- Abduction 4 Good Adduction 4 Good Knee Strength Knee Manual Muscle Testing rigth Flexion (S2) 4 Good Extension (L3) 4+ Good+ Left Flexion (S2) 4- Good- Extension (L3) 4+ Good+ PT-OP-Q Treatments Start: 09/24/24 14:27 Freq: Status: Active Protocol: Document 09/26/24 16:14 BL (Rec: 09/26/24 17:16 BL Laptop) Therapeutic Exercises Supine Exercises core Supine Exercise Name TA and core activation with breathing, Bridges, LTR, clamshells Reps/Minutes 10x Standing Exercises hip Standing Exercise hip abd/ ext Name Comments 10x2 shirley Manual Therapy Treatment Consent Patient gave verbal Yes consent for manual treatment Soft Tissue Mobilization Hip Comments DTM and TPR to R piriformis, L hip flexor and TFL/IT band. PT-OP-T Assessment and Plan Start: 09/24/24 14:27 Freq: Status: Active Protocol: Document 09/26/24 16:14 BL (Rec: 09/26/24 17:16 BL Laptop) Physical Therapy Assessment Goals 3 Electric Meter Repairer Goal (LTG) Pt will demo improved shirley hip extension strength in prone to 4/5 by DC for improved functional mobility with ADLs. 2 Care Home Goal (LTG) Pt will be able to stand on L leg in SLS for 10 sec by DC for improved safety with changing positions. 1 Short Term Goal (STG Pt will be ind with HEP within 2 visits in order to ) progress toward half-way therapy goals outside of therapy visits. Electric Meter Repairer Goal (LTG) Pt report a decrease in her hip discomfort to 2/10 with normal daily activity by DC for improved quality of life. Assessment Summary Assessment Pt tolerates session well, able to progress HEP for L hip strengthening. Pt continues to requires increased UE support due to poor hip abduction stability. Pt demos improved soft tissue mobility following DTM with decreased discomfort following session. Physical Therapy Plan Frequency and Duration Frequency of 2x/Week Treatment Duration of 12 treatment (weeks) Plan of Care Start 09/24/24 Date Plan of Care End 12/17/24 Date Therapeutic Interventions Therapeutic Balance Training,Coordination Training,Gait Training, Interventions Home Exercise Program,Manual Therapy,Neuromuscular Re- education,Orthotic/Prosthetic Management,Patient/ Caregiver Education,Self-Care/Home Management,Soft Tissue Mobilization,Taping,Therapeutic Activities, Therapeutic Exercises Modalities Cold Pack/Ice Massage,Electric Stimulation,Hot Packs, Infrared Therapy,Iontophoresis,Traction- Mechanical, Ultrasound Next Visit Focus/Plan Next Note Type Treatment Note Next Visit Plan Continue to advance HEP hip strengthening, core activation, soft tissue mobilization to L hip and lateral thigh, thoracic and lumbar mobility.
--- NOTE | 2024-10-03 10:30 | PT.OTN ---
Current Diagnoses Other chronic pain (10/03/24) Polyosteoarthritis, unspecified (10/03/24) Pain in left hip (10/03/24) Low back pain, unspecified (10/03/24) Other specified disorders of bone density and structure, unspecified site (10/03/24) Presence of left artificial hip joint (10/03/24) Physical Therapy Treatment Note PT-OP-A Visit Information Start: 09/24/24 14:27 Freq: Status: Active Protocol: Document 10/03/24 09:50 BL (Rec: 10/03/24 10:28 BL Laptop) Out-Patient Physical Therapy Visit Information Visit Information Visit Type Treatment Note Visit Start Time 09:45 Visit Stop Time 10:25 Visit Number (2) 06/02 (PN by 10/24/24) Number of SPECIAL FORCES SPECIALIST Visits 0 PT-OP-C Subjective Start: 09/24/24 14:27 Freq: Status: Active Protocol: Document 10/03/24 09:50 BL (Rec: 10/03/24 10:28 BL Laptop) OP-PT Subjective Patient Comments Patient Comments Pt presents to the clinic and reports slight improvement in symptoms. States HEP is going well. PT-OP-D Balance Start: 09/24/24 14:27 Freq: Status: Active Protocol: Document 09/24/24 14:28 BL (Rec: 09/24/24 15:50 BL Laptop) Balance Tests Single Limb Standing Single Limb- Right 1 sec over 3 trials Single Limb- Left 3 sec over 3 trials Other Other Balance Tests DGI Performed Lopez Balance Assessment Evaluation Sitting to Standing Independent w/out Hands Ability Unsupported Stance Safely- 2 minutes Sitting Unsupported, Safely- 2 minutes Feet on Floor Standing to Sitting Safely, Minimal Hand Use Ability Transfer Ability Safely, Minimal Hand Use Unsupported Stance- Safely, 10 seconds Eyes Closed Unsupported Stance- Independent, 1 minute Eyes Open Reaching Forward Safely, 5 inches Standing Pick- Up Object From Independent/Safe Floor Look Behind Shoulder Shifts Weight Well - Standing Turning 360 Degrees Turns Bilateral, < 4 secs Unsupported Stance, (I)- 8 Steps in 20 secs Alternating Feet on Stair Unsupported Tandem Holds Tandem- 30 seconds Stance Unilateral Leg Lifts Leg/Unable to Hold Stance Total Score Lopez Total Score ( 51 out of 56 points) PT-OP-H Neuro Start: 09/24/24 14:27 Freq: Status: Active Protocol: Document 09/24/24 14:28 BL (Rec: 09/24/24 15:50 BL Laptop) Sensation Evaluation Comments Summary Comments Pt reports tingling sensation down outside of left leg towards evening time. Coordination Evaluation Comments Coordination no coordination deficits noted this date. Comments PT-OP-J Posture/Palpation/Skin Start: 09/24/24 14:27 Freq: Status: Active Protocol: Document 09/24/24 14:28 BL (Rec: 09/24/24 15:50 BL Laptop) Posture Evaluation Comments Posture Comments Pt sits with slight R sided shift, demos posterior lean with posterior pelvic tilt. Palpation Assessment Location R hip Palpation Details Pt point tender through R SI area and L piriformis and lateral thigh area in IT band and gluteal med area PT-OP-K Range of Motion Start: 09/24/24 14:27 Freq: Status: Active Protocol: Document 09/24/24 14:28 BL (Rec: 09/24/24 15:50 BL Laptop) Lumbar Spine Range of Motion Lumbar Spine Active Percentage Testing Position Sitting Flexion 75 Extension 50 Rotation Left 75 Rotation Right 75 ROM Limitations Soft Tissue Tightness Hip Goniometric Range of Motion Hip Right Hip ROM WFL Yes left Hip ROM WFL Yes PT-OP-M Strength Start: 09/24/24 14:27 Freq: Status: Active Protocol: Document 09/24/24 14:28 BL (Rec: 09/24/24 15:50 BL Laptop) Trunk Strength Trunk Manual Muscle Testing Testing Position Supine Comments Pt unable to maintain back flat with lowering of LE in supine, able to lower to 45 deg Hip Strength Hip Manual Muscle Testing rigth Flexion (L2) 4 Good Extension (S1) 4- Good- Abduction 4 Good Adduction 4 Good Left Flexion (L2) 4- Good- Extension (S1) 4- Good- Abduction 4 Good Adduction 4 Good Knee Strength Knee Manual Muscle Testing rigth Flexion (S2) 4 Good Extension (L3) 4+ Good+ Left Flexion (S2) 4- Good- Extension (L3) 4+ Good+ PT-OP-Q Treatments Start: 09/24/24 14:27 Freq: Status: Active Protocol: Document 10/03/24 09:50 BL (Rec: 10/03/24 10:28 BL Laptop) Therapeutic Exercises Supine Exercises core Supine Exercise Name TA and core activation with breathing, Bridges, LTR, clamshells Resistance lvl 2 Reps/Minutes 10x Sitting Exercises NuStep Sitting Exercise Cardiovascular warm up Name Comments 3 minutes Standing Exercises hip Standing Exercise hip abd/ ext, lateral step ups Name Comments 10x2 shirley Manual Therapy Treatment Consent Patient gave verbal Yes consent for manual treatment Soft Tissue Mobilization Hip Comments DTM and TPR to R piriformis, L hip flexor and TFL/IT band. PT-OP-T Assessment and Plan Start: 09/24/24 14:27 Freq: Status: Active Protocol: Document 10/03/24 09:50 BL (Rec: 10/03/24 10:28 BL Laptop) Physical Therapy Assessment Goals 3 Agricultural Extension Officer Goal (LTG) Pt will demo improved shirley hip extension strength in prone to 4/5 by DC for improved functional mobility with ADLs. 2 Half-Way Goal (LTG) Pt will be able to stand on L leg in SLS for 10 sec by DC for improved safety with changing positions. 1 Short Term Goal (STG Pt will be ind with HEP within 2 visits in order to ) progress toward retirement therapy goals outside of therapy visits. Half-Way Goal (LTG) Pt report a decrease in her hip discomfort to 2/10 with normal daily activity by DC for improved quality of life. Assessment Summary Assessment Pt tolerates session well, able to progress HEP for L hip strengthening. Improved soft tissue mobility following with improved symptoms. Physical Therapy Plan Frequency and Duration Frequency of 2x/Week Treatment Duration of 12 treatment (weeks) Plan of Care Start 09/24/24 Date Plan of Care End 12/17/24 Date Therapeutic Interventions Therapeutic Balance Training,Coordination Training,Gait Training, Interventions Home Exercise Program,Manual Therapy,Neuromuscular Re- education,Orthotic/Prosthetic Management,Patient/ Caregiver Education,Self-Care/Home Management,Soft Tissue Mobilization,Taping,Therapeutic Activities, Therapeutic Exercises Modalities Cold Pack/Ice Massage,Electric Stimulation,Hot Packs, Infrared Therapy,Iontophoresis,Traction- Mechanical, Ultrasound Next Visit Focus/Plan Next Note Type Treatment Note Next Visit Plan Continue to advance HEP hip strengthening, core activation, soft tissue mobilization to L hip and lateral thigh, thoracic and lumbar mobility.
--- NOTE | 2024-10-08 15:15 | PT.OTN ---
Current Diagnoses Other chronic pain (10/08/24) Polyosteoarthritis, unspecified (10/08/24) Pain in left hip (10/08/24) Low back pain, unspecified (10/08/24) Other specified disorders of bone density and structure, unspecified site (10/08/24) Presence of left artificial hip joint (10/08/24) Physical Therapy Treatment Note PT-OP-A Visit Information Start: 09/24/24 14:27 Freq: Status: Active Protocol: Document 10/08/24 14:38 BL (Rec: 10/08/24 15:15 BL Laptop) Out-Patient Physical Therapy Visit Information Visit Information Visit Type Treatment Note Visit Start Time 09:45 Visit Stop Time 10:25 Visit Number (4) 07/31 (PN by 10/24/24) Number of OR RN Visits 0 PT-OP-C Subjective Start: 09/24/24 14:27 Freq: Status: Active Protocol: Document 10/08/24 14:38 BL (Rec: 10/08/24 15:15 BL Laptop) OP-PT Subjective Patient Comments Patient Comments Pt presents to the clinic this date and reports she is doing well, states symptoms continue to improve. PT-OP-D Balance Start: 09/24/24 14:27 Freq: Status: Active Protocol: Document 09/24/24 14:28 BL (Rec: 09/24/24 15:50 BL Laptop) Balance Tests Single Limb Standing Single Limb- Right 1 sec over 3 trials Single Limb- Left 3 sec over 3 trials Other Other Balance Tests DGI Performed Lopez Balance Assessment Evaluation Sitting to Standing Independent w/out Hands Ability Unsupported Stance Safely- 2 minutes Sitting Unsupported, Safely- 2 minutes Feet on Floor Standing to Sitting Safely, Minimal Hand Use Ability Transfer Ability Safely, Minimal Hand Use Unsupported Stance- Safely, 10 seconds Eyes Closed Unsupported Stance- Independent, 1 minute Eyes Open Reaching Forward Safely, 5 inches Standing Pick- Up Object From Independent/Safe Floor Look Behind Shoulder Shifts Weight Well - Standing Turning 360 Degrees Turns Bilateral, < 4 secs Unsupported Stance, (I)- 8 Steps in 20 secs Alternating Feet on Stair Unsupported Tandem Holds Tandem- 30 seconds Stance Unilateral Leg Lifts Leg/Unable to Hold Stance Total Score Lopez Total Score ( 51 out of 56 points) PT-OP-H Neuro Start: 09/24/24 14:27 Freq: Status: Active Protocol: Document 09/24/24 14:28 BL (Rec: 09/24/24 15:50 BL Laptop) Sensation Evaluation Comments Summary Comments Pt reports tingling sensation down outside of left leg towards evening time. Coordination Evaluation Comments Coordination no coordination deficits noted this date. Comments PT-OP-J Posture/Palpation/Skin Start: 09/24/24 14:27 Freq: Status: Active Protocol: Document 09/24/24 14:28 BL (Rec: 09/24/24 15:50 BL Laptop) Posture Evaluation Comments Posture Comments Pt sits with slight R sided shift, demos posterior lean with posterior pelvic tilt. Palpation Assessment Location R hip Palpation Details Pt point tender through R SI area and L piriformis and lateral thigh area in IT band and gluteal med area PT-OP-K Range of Motion Start: 09/24/24 14:27 Freq: Status: Active Protocol: Document 09/24/24 14:28 BL (Rec: 09/24/24 15:50 BL Laptop) Lumbar Spine Range of Motion Lumbar Spine Active Percentage Testing Position Sitting Flexion 75 Extension 50 Rotation Left 75 Rotation Right 75 ROM Limitations Soft Tissue Tightness Hip Goniometric Range of Motion Hip Right Hip ROM WFL Yes left Hip ROM WFL Yes PT-OP-M Strength Start: 09/24/24 14:27 Freq: Status: Active Protocol: Document 09/24/24 14:28 BL (Rec: 09/24/24 15:50 BL Laptop) Trunk Strength Trunk Manual Muscle Testing Testing Position Supine Comments Pt unable to maintain back flat with lowering of LE in supine, able to lower to 45 deg Hip Strength Hip Manual Muscle Testing rigth Flexion (L2) 4 Good Extension (S1) 4- Good- Abduction 4 Good Adduction 4 Good Left Flexion (L2) 4- Good- Extension (S1) 4- Good- Abduction 4 Good Adduction 4 Good Knee Strength Knee Manual Muscle Testing rigth Flexion (S2) 4 Good Extension (L3) 4+ Good+ Left Flexion (S2) 4- Good- Extension (L3) 4+ Good+ PT-OP-Q Treatments Start: 09/24/24 14:27 Freq: Status: Active Protocol: Document 10/08/24 14:38 BL (Rec: 10/08/24 15:15 BL Laptop) Therapeutic Exercises Supine Exercises core Supine Exercise Name TA and core activation with breathing, Bridges, LTR, clamshells Resistance lvl 2 Reps/Minutes 10x Standing Exercises hip Standing Exercise hip abd/ ext, lateral step ups (reviewed) Name Comments 10x2 shirley Manual Therapy Treatment Consent Patient gave verbal Yes consent for manual treatment Soft Tissue Mobilization Hip Comments DTM and TPR to R piriformis, L hip flexor and TFL/IT band. PT-OP-T Assessment and Plan Start: 09/24/24 14:27 Freq: Status: Active Protocol: Document 10/08/24 14:38 BL (Rec: 10/08/24 15:15 BL Laptop) Physical Therapy Assessment Goals 3 Alf Goal (LTG) Pt will demo improved shirley hip extension strength in prone to 4/5 by DC for improved functional mobility with ADLs. 2 Alf Goal (LTG) Pt will be able to stand on L leg in SLS for 10 sec by DC for improved safety with changing positions. 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 Alf Goal (LTG) Pt report a decrease in her hip discomfort to 2/10 with normal daily activity by DC for improved quality of life. Assessment Summary Assessment Pt tolerates session well, able to progress HEP for L hip strengthening. Pt tolerates STM and other manual techniques today with improved tissue mobility following. Pt plans to cancel next few appointments as she is feeling pretty good and will be changing jobs, pt plans to call us in a couple of weeks to schedule a few more appointments. Overall very happy with her progress. Physical Therapy Plan Frequency and Duration Frequency of 2x/Week Treatment Duration of 12 treatment (weeks) Plan of Care Start 09/24/24 Date Plan of Care End 12/17/24 Date Next Visit Focus/Plan Next Note Type Treatment Note Next Visit Plan Continue to advance HEP hip strengthening, core activation, soft tissue mobilization to L hip and lateral thigh, thoracic and lumbar mobility.
--- NOTE | 2024-11-18 09:34 | PT.OPDS ---
Current Diagnoses Other chronic pain (10/08/24) Polyosteoarthritis, unspecified (10/08/24) Pain in left hip (10/08/24) Low back pain, unspecified (10/08/24) Other specified disorders of bone density and structure, unspecified site (10/08/24) Presence of left artificial hip joint (10/08/24) Visit Care Team Role Provider Type Johana Duval DO Attending Provider Physician Family Provider Primary Care Provider Referring Provider Specialty: Family Practice Address: [address] [place] [address], [address], [facility] Email: [email or web address] Visit Number Visit Number () 07/31 (PN by 10/24/24) Discharge Summary Pt was last seen on 10/08/24 and was progressing well, pt cancelled next few appointments due to feeling well. Unable to reconnect with pt since, plan to DC pt at this time due to lack of progress toward therapy goals. Pt welcome to return with additional therapy script. PT-OP-C Subjective Start: 09/24/24 14:27 Freq: Status: Active Protocol: Document 10/08/24 14:38 BL (Rec: 10/08/24 15:15 BL Laptop) OP-PT Subjective Patient Comments Patient Comments Pt presents to the clinic this date and reports she is doing well, states symptoms continue to improve. PT-OP-D Balance Start: 09/24/24 14:27 Freq: Status: Active Protocol: Document 09/24/24 14:28 BL (Rec: 09/24/24 15:50 BL Laptop) Balance Tests Single Limb Standing Single Limb- Right 1 sec over 3 trials Single Limb- Left 3 sec over 3 trials Other Other Balance Tests DGI Performed Lopez Balance Assessment Evaluation Sitting to Standing Independent w/out Hands Ability Unsupported Stance Safely- 2 minutes Sitting Unsupported, Safely- 2 minutes Feet on Floor Standing to Sitting Safely, Minimal Hand Use Ability Transfer Ability Safely, Minimal Hand Use Unsupported Stance- Safely, 10 seconds Eyes Closed Unsupported Stance- Independent, 1 minute Eyes Open Reaching Forward Safely, 5 inches Standing Pick- Up Object From Independent/Safe Floor Look Behind Shoulder Shifts Weight Well - Standing Turning 360 Degrees Turns Bilateral, < 4 secs Unsupported Stance, (I)- 8 Steps in 20 secs Alternating Feet on Stair Unsupported Tandem Holds Tandem- 30 seconds Stance Unilateral Leg Lifts Leg/Unable to Hold Stance Total Score Lopez Total Score ( 51 out of 56 points) PT-OP-H Neuro Start: 09/24/24 14:27 Freq: Status: Active Protocol: Document 09/24/24 14:28 BL (Rec: 09/24/24 15:50 BL Laptop) Sensation Evaluation Comments Summary Comments Pt reports tingling sensation down outside of left leg towards evening time. Coordination Evaluation Comments Coordination no coordination deficits noted this date. Comments PT-OP-J Posture/Palpation/Skin Start: 09/24/24 14:27 Freq: Status: Active Protocol: Document 09/24/24 14:28 BL (Rec: 09/24/24 15:50 BL Laptop) Posture Evaluation Comments Posture Comments Pt sits with slight R sided shift, demos posterior lean with posterior pelvic tilt. Palpation Assessment Location R hip Palpation Details Pt point tender through R SI area and L piriformis and lateral thigh area in IT band and gluteal med area PT-OP-K Range of Motion Start: 09/24/24 14:27 Freq: Status: Active Protocol: Document 09/24/24 14:28 BL (Rec: 09/24/24 15:50 BL Laptop) Lumbar Spine Range of Motion Lumbar Spine Active Percentage Testing Position Sitting Flexion 75 Extension 50 Rotation Left 75 Rotation Right 75 ROM Limitations Soft Tissue Tightness Hip Goniometric Range of Motion Hip Right Hip ROM WFL Yes left Hip ROM WFL Yes PT-OP-M Strength Start: 09/24/24 14:27 Freq: Status: Active Protocol: Document 09/24/24 14:28 BL (Rec: 09/24/24 15:50 BL Laptop) Trunk Strength Trunk Manual Muscle Testing Testing Position Supine Comments Pt unable to maintain back flat with lowering of LE in supine, able to lower to 45 deg Hip Strength Hip Manual Muscle Testing rigth Flexion (L2) 4 Good Extension (S1) 4- Good- Abduction 4 Good Adduction 4 Good Left Flexion (L2) 4- Good- Extension (S1) 4- Good- Abduction 4 Good Adduction 4 Good Knee Strength Knee Manual Muscle Testing rigth Flexion (S2) 4 Good Extension (L3) 4+ Good+ Left Flexion (S2) 4- Good- Extension (L3) 4+ Good+ PT-OP-T Assessment and Plan Start: 09/24/24 14:27 Freq: Status: Active Protocol: Document 10/08/24 14:38 BL (Rec: 10/08/24 15:15 BL Laptop) Physical Therapy Assessment Goals 3 Retirement Goal (LTG) Pt will demo improved shirley hip extension strength in prone to 4/5 by DC for improved functional mobility with ADLs. 2 Management Internship Goal (LTG) Pt will be able to stand on L leg in SLS for 10 sec by DC for improved safety with changing positions. 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 Retirement Goal (LTG) Pt report a decrease in her hip discomfort to 2/10 with normal daily activity by DC for improved quality of life. Assessment Summary Assessment Pt tolerates session well, able to progress HEP for L hip strengthening. Pt tolerates STM and other manual techniques today with improved tissue mobility following. Pt plans to cancel next few appointments as she is feeling pretty good and will be changing jobs, pt plans to call us in a couple of weeks to schedule a few more appointments. Overall very happy with her progress. Physical Therapy Plan Frequency and Duration Frequency of 2x/Week Treatment Duration of 12 treatment (weeks) Plan of Care Start 09/24/24 Date Plan of Care End 12/17/24 Date Next Visit Focus/Plan Next Note Type Treatment Note Next Visit Plan Continue to advance HEP hip strengthening, core activation, soft tissue mobilization to L hip and lateral thigh, thoracic and lumbar mobility.
== END 2024-11-19 09:31 | disposition home or self-care (01) ==
LOC: PHYS 14:30
PROVIDERS: Family Provider Family Medicine; PCP Family Medicine; Referring Provider Family Medicine; Visit Provider Family Medicine
DX: Z96.642 Presence of left artificial hip joint (principal); M85.80 Other specified disorders of bone density and structure, unspecified site; M15.9 Polyosteoarthritis, unspecified; G89.29 Other chronic pain; M54.50 Low back pain, unspecified; M25.552 Pain in left hip
CPT/HCPCS: 97110; 97140; 97162